=== PATIENT | female | born 1980 | race Caucasian/White ===

== ENCOUNTER 2021-06-13 11:49 | Inpatient (IN) | payer OTHER ==
[~2021-06-13] VITALS: Ht 167.6 cm; Wt 96.8 kg
[2021-06-13] MEDS ORDERED: IPRATRPIUM/ALBUTEROL 0.5/2.5MG 3 ML NEBU. NEB ONE (12:30)
[2021-06-13] MEDS ORDERED: methylPREDNISolone SOD SUCC PF 125 MG/2 ML VIAL. IV ONE (12:30)
--- NOTE | 2021-06-13 12:38 | RAD ---
XR CHEST 1V History: Reason: SOB / Spl. Instructions: / History: Comparison: January 12, 2018 Findings: Multifocal pulmonary consolidations most prominent within the mid lungs. No pleural effusion. No pneu mothorax. Normal heart size. Impression: 1. Multifocal pulmonary consolidations, concerning for pneumonia. Recommend follow-up to ensure reso lution. Electronically signed by: Lalo Sykes DO (06/13/2021 12:36 PM) [id number]
[2021-06-13 12:42] LABS: BASE EXCESS ABG 0 mmol/L (-3-3); HCO3 ABG 24 mmol/L (21-28); PCO2 ABG 37 mmHg (35-46); PO2 ABG 70 mmHg (75-108); SAT O2 ABG 94 % (92-99)
[2021-06-13 12:46] LABS: FIO2 ABG 56%/9LNC
[2021-06-13 13:07] LABS: BASO # 0.2 x10^3/uL (0.0-0.2); BASO % 1 % (0-3); EOS % 0 % (0-3); HEMATOCRIT 39.5 % (36.0-47.0); HEMOGLOBIN 13.5 g/dL (12.0-15.5); LYMPH # 1.7 x10^3/uL (1.0-4.8); LYMPH % 11 % (24-48); MEAN CORPUSCULAR HEMOGLOBIN 31 pg (25-35); MEAN CORPUSCULAR HGB CONC 34 g/dL (31-37); MEAN CORPUSCULAR VOLUME 89 fL (79-100); MONO # 1.2 x10^3/uL (0.0-1.1); MONO % 8 % (0-9); NEUT # 12.5 x10^3/uL (1.8-7.7); NEUT % 80 % (31-73); PLATELET COUNT 320 x10^3/uL (140-400); RED BLOOD COUNT 4.43 x10^6/uL (3.50-5.40); RED CELL DISTRIBUTION WIDTH 13.9 % (11.5-14.5); WHITE BLOOD COUNT 15.6 x10^3/uL (4.0-11.0)
[2021-06-13] MEDS ORDERED: TERBUTALINE 1 MG/ML VIAL. SQ ONE (13:15)
[2021-06-13] MEDS ORDERED: ALBUTEROL SULFATE 2.5 MG/3 ML NEBU. NEB ONE (13:15)
[2021-06-13 13:17] LABS: CALCIUM 9.4 mg/dL (8.5-10.1); CREATININE 1.2 mg/dL (0.6-1.0); GFR 49.3; POTASSIUM 4.1 mmol/L (3.5-5.1)
[2021-06-13 13:22] LABS: ALBUMIN 2.8 g/dL (3.4-5.0); ALBUMIN/GLOBULIN RATIO 0.5 (1.0-1.7); TOTAL BILIRUBIN 0.6 mg/dL (0.2-1.0); TOTAL PROTEIN 8.6 g/dL (6.4-8.2)
[2021-06-13 13:27] LABS: % BANDS 6 % (0-9); % LYMPHS 23 % (24-48); % MONOS 1 % (0-10); % SEGS 70 % (35-66); PLT ESTIMATE ADEQUATE (ADEQUATE)
[2021-06-13] MEDS ORDERED: IV NORMAL SALINE 1000ML BAG 1,000 ML IV ONE (13:30)
[2021-06-13] MEDS ORDERED: IOHEXOL 350 MG/ML 100 ML VIAL. IV ONE (13:45)
[2021-06-13] MEDS ORDERED: CONTRAST GIVEN. MC PRN (14:00)
--- NOTE | 2021-06-13 14:14 | PHYS DOC ---
Past Medical History Past Medical History: Anxiety, Asthma, Bipolar, COPD, Depression, High Cholesterol, Hypertension Past Surgical History: No Surgical History Smoking Status: Heavy Tobacco Smoker Alcohol Use: None Drug Use: None General Adult EDM: Chief Complaint: SHORTNESS OF BREATH HPI: HPI: Patient is a 40-year-old female the presents today with shortness of breath. Patient states that over the last 4 days she has had increased shortness of breath, she did tell staff that she has a history of COPD and is supposed to be on oxygen therapy at home, she said that she has not had any oxygen therapy for over a year to year and a half, she states that over the last 4 days she has had increased shortness of breath and cough. Patient's initial O2 sat upon arrival to the emergency department was 81%, patient was able to ambulate into the department, when she talks she is able to talk in complete sentences but is sitting straight up in the bed with increased work of breathing noted. Patient states that she smokes approximately 2 packs/day but has not smoked in the last 4 days due to the increase shortness of breath, she said she had a breathing treatment around 3:00 this morning and that did not help her breathing. Patient states that she has had 2 Covid vaccines but has not had the booster, she said she did not get the influenza vaccine this year. Review of Systems: Review of Systems: Constitutional: Denies fever or chills. [] Eyes: Denies change in visual acuity. [] HENT: Denies nasal congestion or sore throat. [] Respiratory: Denies cough or shortness of breath. [] Cardiovascular: Denies chest pain or edema. [] GI: Denies abdominal pain, nausea, vomiting, bloody stools or diarrhea. [] : Denies dysuria. [] Musculoskeletal: Denies back pain or joint pain. [] Integument: Denies rash. [] Neurologic: Denies headache, focal weakness or sensory changes. [] Endocrine: Denies polyuria or polydipsia. [] Lymphatic: Denies swollen glands. [] Psychiatric: Denies depression or anxiety. [] Heart Score: C/O Chest Pain: No Risk Factors: Risk Factors: DM, Current or recent (<one month) smoker, HTN, HLP, family history of CAD, obesity. Risk Scores: Score 0 - 3: 2.5% MACE over next 6 weeks - Discharge Home Score 4 - 6: 20.3% MACE over next 6 weeks - Admit for Clinical Observation Score 7 - 10: 72.7% MACE over next 6 weeks - Early Invasive Strategies Current Medications: Current Medications Medications (Trade) Dose Ordered Sig/Kailyn Start Time Stop Time Status Last Admin Dose Admin Albuterol Sulfate (Ventolin Neb Soln) 2.5 mg 1X ONCE 06/13/21 13:15 06/13/21 13:16 DC 06/13/21 13:29 2.5 MG Albuterol/ Ipratropium (Duoneb) 3 ml 1X ONCE 06/13/21 12:30 06/13/21 12:38 DC 06/13/21 12:34 3 ML Ceftriaxone Sodium (Rocephin) 1 gm 1X ONCE 06/13/21 14:15 06/13/21 14:16 Doxycycline Hyclate 100 mg/ Dextrose 100 ml @ 50 mls/hr 1X ONCE 06/13/21 14:15 06/13/21 16:14 Info (CONTRAST GIVEN -- Rx MONITORING) 1 each PRN DAILY PRN 06/13/21 14:00 06/15/21 13:59 Iohexol (Omnipaque 350 Mg/ml) 90 ml 1X ONCE 06/13/21 13:45 06/13/21 13:49 DC 06/13/21 13:42 90 ML Methylprednisolone Sodium Succinate (SOLU-Medrol 125MG VIAL) 125 mg 1X ONCE 06/13/21 12:30 06/13/21 12:38 DC 06/13/21 12:53 125 MG Sodium Chloride 1,000 ml @ 999 mls/hr 1X ONCE 06/13/21 13:30 06/13/21 14:30 06/13/21 14:03 999 MLS/HR Terbutaline Sulfate (Brethine) 0.25 mg 1X ONCE 06/13/21 13:15 06/13/21 13:16 DC 06/13/21 14:07 0.25 MG Allergies: Allergies: Allergies Coded Allergies Type Severity Reaction Last Updated Verified Penicillins Allergy Intermediate 06/13/21 Yes azithromycin Allergy Unknown 06/13/21 Yes levofloxacin Allergy Unknown 06/13/21 Yes morphine Allergy Unknown 06/13/21 Yes tramadol Allergy Unknown 06/13/21 Yes Physical Exam: PE: Constitutional: moderate distress female appears uncapped, and a strong cigarette smell, HENT: Normocephalic, atraumatic, bilateral external ears normal, oropharynx moist, no oral exudates, nose normal. [] Eyes: PERRLA, EOMI, conjunctiva normal, no discharge. [] Neck: Normal range of motion, no tenderness, supple, no stridor. [] Cardiovascular:Heart rate tachycardic, peripheral pulses 2+ Lungs & Thorax: Bilateral breath sounds wheezes throughout with diminished bases, increased work of breathing noted, patient is on 9 L per nasal cannula Abdomen: Bowel sounds normal, soft, no tenderness, no masses, no pulsatile masses. [] Skin: Pale, warm, dry, no erythema, no rash. [] Back: No tenderness, no CVA tenderness. [] Extremities: No tenderness, no cyanosis, no clubbing, ROM intact, no edema. [] Neurologic: Alert and oriented X 3, normal motor function, normal sensory function, no focal deficits noted. [] Psychologic: Affect normal, judgement normal, mood normal. [] Current Patient Data: Labs: Laboratory Tests Test 06/13/21 12:41 06/13/21 12:46 O2 Saturation 94 % (92-99) Arterial Blood pH 7.43 (7.35-7.45) Arterial Blood pCO2 at Patient Temp 37 mmHg (35-46) Arterial Blood pO2 at Patient Temp 70 mmHg (75-108) L Arterial Blood HCO3 24 mmol/L (21-28) Arterial Blood Base Excess 0 mmol/L (-3-3) FiO2 56%/9lnc White Blood Count 15.6 x10^3/uL (4.0-11.0) H Red Blood Count 4.43 x10^6/uL (3.50-5.40) Hemoglobin 13.5 g/dL (12.0-15.5) Hematocrit 39.5 % (36.0-47.0) Mean Corpuscular Volume 89 fL (79-100) Mean Corpuscular Hemoglobin 31 pg (25-35) Mean Corpuscular Hemoglobin Concent 34 g/dL (31-37) Red Cell Distribution Width 13.9 % (11.5-14.5) Platelet Count 320 x10^3/uL (140-400) Neutrophils (%) (Auto) 80 % (31-73) H Lymphocytes (%) (Auto) 11 % (24-48) L Monocytes (%) (Auto) 8 % (0-9) Eosinophils (%) (Auto) 0 % (0-3) Basophils (%) (Auto) 1 % (0-3) Neutrophils # (Auto) 12.5 x10^3/uL (1.8-7.7) H Lymphocytes # (Auto) 1.7 x10^3/uL (1.0-4.8) Monocytes # (Auto) 1.2 x10^3/uL (0.0-1.1) H Eosinophils # (Auto) 0.0 x10^3/uL (0.0-0.7) Basophils # (Auto) 0.2 x10^3/uL (0.0-0.2) Segmented Neutrophils % 70 % (35-66) H Band Neutrophils % 6 % (0-9) Lymphocytes % 23 % (24-48) L Monocytes % 1 % (0-10) Platelet Estimate Adequate (ADEQUATE) Sodium Level 130 mmol/L (136-145) L Potassium Level 4.1 mmol/L (3.5-5.1) Chloride Level 94 mmol/L (98-107) L Carbon Dioxide Level 25 mmol/L (21-32) Anion Gap 11 (6-14) Blood Urea Nitrogen 14 mg/dL (7-20) Creatinine 1.2 mg/dL (0.6-1.0) H Estimated GFR (Cockcroft-Gault) 49.3 BUN/Creatinine Ratio 12 (6-20) Glucose Level 385 mg/dL (70-99) H Calcium Level 9.4 mg/dL (8.5-10.1) Total Bilirubin 0.6 mg/dL (0.2-1.0) Aspartate Amino Transferase (AST) 24 U/L (15-37) Alanine Aminotransferase (ALT) 30 U/L (14-59) Alkaline Phosphatase 154 U/L (46-116) H Troponin I High Sensitivity < 4 ng/L (4-50) L OY-Zpg-G-Type Natriuretic Peptide 193 pg/mL (0-124) H Total Protein 8.6 g/dL (6.4-8.2) H Albumin 2.8 g/dL (3.4-5.0) L Albumin/Globulin Ratio 0.5 (1.0-1.7) L Laboratory Tests 06/13/21 12:46 Laboratory Tests 06/13/21 12:46 Vital Signs: Vital Signs Date Time Temp Pulse Resp B/P (MAP) Pulse Ox O2 Delivery O2 Flow Rate FiO2 06/13/21 14:53 118 37 114/62 (79) 95 Nasal Cannula 10.0 06/13/21 14:07 112 115/70 06/13/21 14:01 114 38 115/70 (85) 95 Room Air 10.0 06/13/21 13:30 94 Nasal Cannula 9.0 06/13/21 12:46 120 34 129/72 (91) 94 Room Air 10.0 06/13/21 12:34 95 Nasal Cannula 9.0 06/13/21 12:06 98.7 124 32 122/67 (85) 81 Room Air 98.7 Vital Signs Date Time Temp Pulse Resp B/P (MAP) Pulse Ox O2 Delivery O2 Flow Rate FiO2 06/13/21 14:07 112 115/70 06/13/21 14:01 38 95 Room Air 10.0 06/13/21 12:06 98.7 98.7 EKG: EKG: EKG done at [address] Kim at 1402 shows sinus tachycardia no ectopy at a rate of 115 with a DC interval of 122 ms with a QTC of 456 ms no STEMI [] Radiology/Procedures: Radiology/Procedures: REASON: SOA PROCEDURE: CT ANGIOGRAPHY CHEST CTA Chest with contrast: Clinical History: Reason: SOA / Spl. Instructions: [id number] 90ML / History: Shortness of breath. Axial helical images of the chest were obtained after the administration of 100 cc of IV Isovue-370 and timed appropriately for a pulmonary arterial study. Conventional axial reconstruction was performed in addition to coronal, sagittal and bilateral oblique MIP (maximum intensity projection). This study was ordered to detect possible pulmonary embolism. FINDINGS: There are no filling defects to suggest pulmonary embolism. The more peripheral subsegmental pulmonary arteries are not well opacified limiting our sensitivity for small peripheral pulmonary emboli. There is patchy opacities throughout the lungs bilaterally especially in the peripheral mid lungs. There is multilevel mild enlargement of subcarinal and hilar lymph nodes. There is hypoattenuation of the liver. There is no mediastinal or hilar lymphadenopathy. Evaluation thoracic aorta is limited by beam hardening artifact from dense contrast in the SVC. Thoracic aorta is felt to be normal. Impression: 1. No evidence of pulmonary embolism. 2. Moderate bilateral infiltrates slightly atypical pneumonia. Recommend follow-up chest x-ray to complete resolution. 3. Mild lymphadenopathy likely reactive. End of impression PQRS Compliance Statement: One or more of the following individualized dose reduction techniques were utilized for this examination: 1. Automated exposure control 2. Adjustment of the mA and/or kV according to patient size 3. Use of iterative reconstruction technique Electronically signed by: Americo Fields III, MD (06/13/2021 2:59 PM) [facility] REASON: SOB PROCEDURE: CHEST AP ONLY XR CHEST 1V History: Reason: SOB / Spl. Instructions: / History: Comparison: January 12, 2018 Findings: Multifocal pulmonary consolidations most prominent within the mid lungs. No pleural effusion. No pneumothorax. Normal heart size. Impression: 1. Multifocal pulmonary consolidations, concerning for pneumonia. Recommend follow-up to ensure resolution. Electronically signed by: Lalo Sykes DO (06/13/2021 12:36 PM) [id number] [] Course & Med Decision Making: Course & Med Decision Making Pertinent Labs and Imaging studies reviewed. (See chart for details) [id number] Mary with the hospitalist group and he is agreeable to admitting the patient for further evaluation and further treatment of her s hortness of air, atypical pneumonia. Dragtari Disclaimer: Lisa Disclaimer: This electronic medical record was generated, in whole or in part, using a voice recognition dictation system. Departure Departure Impression: Primary Impression: Hypoxia Additional Impressions: Shortness of breath Atypical pneumonia Disposition: ADMITTED INPATIENT Admitting Physician: HIMS Referrals: MADY PETERS MD (PCP) DELPHINE ANSH APRN Jun 13, 2021 14:14
[2021-06-13] MEDS ORDERED: DOXYCYCLINE HYCLATE 100 MG in IV DEXTROSE 5% 100ML 100 ML IV ONE (14:15)
[2021-06-13] MEDS ORDERED: cefTRIAXone IV Push 1 GM VIAL. IVP ONE (14:15)
[2021-06-13 14:40] LABS: INFLUENZA A PATIENT NEGATIVE (NEGATIVE); INFLUENZA B PATIENT NEGATIVE (NEGATIVE)
--- NOTE | 2021-06-13 15:01 | RAD ---
CTA Chest with contrast: Clinical History: Reason: SOA / Spl. Instructions: [id number] 90ML / History: Shortness of breath. Axial helical images of the chest were obtained after the administration of 100 cc of IV Isovue-370 a nd timed appropriately for a pulmonary arterial study. Conventional axial reconstruction was perform ed in addition to coronal, sagittal and bilateral oblique MIP (maximum intensity projection). This s tudy was ordered to detect possible pulmonary embolism. FINDINGS: There are no filling defects to suggest pulmonary embolism. The more peripheral subsegmental pulmonary arteries are not well opacified limiting our sensitivity f or small peripheral pulmonary emboli. There is patchy opacities throughout the lungs bilaterally especially in the peripheral mid lungs. There is multilevel mild enlargement of subcarinal and hilar lymph nodes. There is hypoattenuation of the liver. There is no mediastinal or hilar lymphadenopathy. Evaluation thoracic aorta is limited by beam hardening artifact from dense contrast in the SVC. Thora cic aorta is felt to be normal. Impression: 1. No evidence of pulmonary embolism. 2. Moderate bilateral infiltrates slightly atypical pneumonia. Recommend follow-up chest x-ray to co mplete resolution. 3. Mild lymphadenopathy likely reactive. End of impression PQRS Compliance Statement: One or more of the following individualized dose reduction techniques were utilized for this examinat ion: 1. Automated exposure control 2. Adjustment of the mA and/or kV according to patient size 3. Use of iterative reconstruction technique Electronically signed by: Americo Fields III, MD (06/13/2021 2:59 PM) [facility]
[2021-06-13] MEDS ORDERED: DULA1.5P SQ (18:02)
[2021-06-13] MEDS ORDERED: CARI4.5C PO (18:02)
[2021-06-13 19:00] VITALS: BP 114/69
[2021-06-13] MEDS ORDERED: IV DEXTROSE 5% 250 ML BAG. IV PRN (19:00)
[2021-06-13] MEDS ORDERED: DEXTROSE 50% 25 GM / 50ML DISP.SYRIN. IV PRN (19:00)
[2021-06-13] MEDS ORDERED: INSULIN LISPRO 300 UNITS/3 ML VIAL. SQ ONE (19:30)
[2021-06-13] MEDS ORDERED: NICOTINE 21MG PATCH. TD PRN (20:15)
--- NOTE | 2021-06-13 20:19 | PDOC1 ---
History and Physical Date of Admission Date of Admission DATE: 06/13/21 TIME: 20:14 Source Source: Chart review, Patient History of Present Illness History of Present Illness Marie is a 40-year-old female admit form the ER with acutely worse shortness of breath. Over 4 days w/ increased shortness of breath, cough today. She was at the park today and could not breathe well, had some panic sensation that she could not breathe. Prior hypoxia with illness, no home 02. Hypoxic in field 81%, she walked in to the ER. NOramlly, smokes 2 packs/day but quit 4 days due to not feeling well, her home breathing treatments were not helping. had 2 Covid vaccines Past Medical History Cardiovascular: No pertinent hx Pulmonary: Asthma, COPD GI: No pertinent hx Heme/Onc: No pertinent hx Psych: Anxiety, Bipolar Musculoskeletal: low back pain Rheumatologic: No pertinent hx ENT: No pertinent hx Renal/: No pertinent hx Endocrine: No pertinent hx Dermatology: No pertinent hx Past Surgical History Past Surgical History: No pertinent history Family History Family History: No Significant Social History Smoke: 1 pack per day ALCOHOL: none Drugs: None Current Problem List Problem List Problems Medical Problems: (1) Atypical pneumonia Status: Acute (2) Hypoxia Status: Acute (3) Shortness of breath Status: Acute Current Medications Current Medications Current Medications Albuterol/ Ipratropium (Duoneb) 3 ml 1X ONCE NEB Last administered on 06/13/21at 12:34; Start 06/13/21 at 12:30; Stop 06/13/21 at 12:38; Status DC Methylprednisolone Sodium Succinate (SOLU-Medrol 125MG VIAL) 125 mg 1X ONCE IV Last administered on 06/13/21at 12:53; Start 06/13/21 at 12:30; Stop 06/13/21 at 12:38; Status DC Albuterol Sulfate (Ventolin Neb Soln) 2.5 mg 1X ONCE NEB Last administered on 06/13/21at 13:29; Start 06/13/21 at 13:15; Stop 06/13/21 at 13:16; Status DC Terbutaline Sulfate (Brethine) 0.25 mg 1X ONCE SQ Last administered on 06/13/21at 14:07; Start 06/13/21 at 13:15; Stop 06/13/21 at 13:16; Status DC Sodium Chloride 1,000 ml @ 999 mls/hr 1X ONCE IV Last administered on 06/13/21at 14:03; Start 06/13/21 at 13:30; Stop 06/13/21 at 14:30; Status DC Iohexol (Omnipaque 350 Mg/ml) 90 ml 1X ONCE IV Last administered on 06/13/21at 13:42; Start 06/13/21 at 13:45; Stop 06/13/21 at 13:49; Status DC Info (CONTRAST GIVEN -- Rx MONITORING) 1 each PRN DAILY PRN MC SEE COMMENTS; Start 06/13/21 at 14:00; Stop 06/15/21 at 13:59 Ceftriaxone Sodium (Rocephin) 1 gm 1X ONCE IVP Last administered on 06/13/21at 14:58; Start 06/13/21 at 14:15; Stop 06/13/21 at 14:16; Status DC Doxycycline Hyclate 100 mg/ Dextrose 100 ml @ 50 mls/hr 1X ONCE IV Last administered on 06/13/21at 14:58; Start 06/13/21 at 14:15; Stop 06/13/21 at 16:14; Status DC Insulin Human Lispro (HumaLOG) 0-9 UNITS TIDWMEALHC SQ ; Start 06/13/21 at 21:00 Dextrose (Dextrose 50%-Water Syringe) 12.5 gm PRN Q15MIN PRN IV SEE COMMENTS; Start 06/13/21 at 19:00 Dextrose (Iv Dextrose 5%) 250 ml PRN Q15MIN PRN IV SEE COMMENTS; Start 06/13/21 at 19:00 Insulin Human Lispro (HumaLOG) 10 units TIDWMEALS SQ ; Start 06/14/21 at 08:00 Insulin Human Lispro (HumaLOG) 15 units 1X ONCE SQ Last administered on 06/13/21at 19:30; Start 06/13/21 at 19:30; Stop 06/13/21 at 19:31; Status DC Non-Formulary Medication (Cariprazine Hydrochloride (Vraylar)) 1 cap DAILY PO ; Start 06/14/21 at 09:00; Status UNV Non-Formulary Medication (Dulaglutide (Trulicity)) 1.5 mg WEEKLY SQ ; Start 06/20/21 at 09:00; Status UNV Active Scripts Active Reported Trulicity (Dulaglutide) 1.5 Mg/0.5 Ml Pen.injctr 1.5 Mg SQ WEEKLY Vraylar (Cariprazine Hydrochloride) 4.5 Mg Capsule 1 Cap PO DAILY 30 Days Allergies Allergies: Coded Allergies: Penicillins (Verified Allergy, Intermediate, 06/13/21) azithromycin (Verified Allergy, Unknown, 06/13/21) levofloxacin (Verified Allergy, Unknown, 06/13/21) morphine (Verified Allergy, Unknown, 06/13/21) tramadol (Verified Allergy, Unknown, 06/13/21) ROS General: YES: Chills, Fatigue, Malaise PSYCHOLOGICAL ROS: YES: Anxiety, Sleep disturbances; No: Behavioral Disorder, Concentration difficultie, Decreased libido, Depression, Disorientation, Hallucinations, Hostility, Irritablity, Memory difficulties, Mood Swings, Obsessive thoughts, Other Eyes: No Blurry vision, No Decreased vision, No Double vision, No Dry eyes, No Excessive tearing, No Eye Pain, No Itchy Eyes, No Loss of vision, No Photophobia, No Scotomata, No Uses contacts, No Uses glasses, No Other HEENT: YES: Heacaches; No: Visual Changes, Hearing change, Nasal congestion, Nasal discharge, Oral lesions, Sinus pain, Sore Throat, Epistaxis, Sneezing, Snoring, Tinnitus, Vertigo, Vocal changes, Other Respiratory: YES: Cough, Shortness of breath, SOB with excertion; No: Hemoptysis, Orthopnea, Pleuritic Pain, Sputum Changes, Stridor, Tachypnea, Wheezing, Other Cardiovascular: No Chest Pain, No Palpitations, No Orthopnea, No Paroxysmal Noc. Dyspnea, No Edema, No Lt Headedness, No Other Gastrointestinal: No Nausea, No Vomiting, No Abdominal Pain, No Diarrhea, No Constipation, No Melena, No Hematochezia, No Other Genitourinary: No Dysuria, No Frequency, No Incontinence, No Hematuria, No Retention, No Discharge, No Urgency, No Pain, No Flank Pain, No Other, No , No , No , No , No , No , No Musculoskeletal: Yes Joint Stiffness; No Gait Disturbance, No Joint Pain, No Joint Swelling, No Muscle Pain, No Muscular Weakness, No Pain In:, No Swelling In:, No Other Neurological: No Behavorial Changes, No Bowel/Bladder ControlChng, No Confusion, No Dizziness, No Gait Disturbance, No Headaches, No Impaired Coord/balance, No Memory Loss, No Numbness/Tingling, No Seizures, No Speech Problems, No Tremors, No Visual Changes, No Weakness, No Other Skin: Yes Dry Skin; No Eczema, No Hair Changes, No Lumps, No Mole Changes, No Mottling, No Nail Changes, No Pruritus, No Rash, No Skin Lesion Changes, No Other, No Acne Physical Exam Physical Exam sweaty, clammy General: Alert, Oriented X3, No acute distress, mild distress HEENT: Atraumatic Lungs: Other (lower vol, rales, no crackes, ) Abdomen: Normal bowel sounds, Soft, No tenderness Extremities: No clubbing, No edema Skin: No rashes, No significant lesion Neuro: Normal speech, Normal tone, Cranial nerves 3-12 NL Psych/Mental Status: Mood NL Vitals Vitals Vital Signs Date Time Temp Pulse Resp B/P (MAP) Pulse Ox O2 Delivery O2 Flow Rate FiO2 06/13/21 19:00 98.1 96 18 114/69 (84) 96 Room Air 98.1 06/13/21 17:15 10.0 Labs Labs Laboratory Tests Test 06/13/21 12:41 06/13/21 12:46 06/13/21 14:09 06/13/21 18:45 O2 Saturation 94 % (92-99) Arterial Blood pH 7.43 (7.35-7.45) Arterial Blood pCO2 at Patient Temp 37 mmHg (35-46) Arterial Blood pO2 at Patient Temp 70 mmHg (75-108) Arterial Blood HCO3 24 mmol/L (21-28) Arterial Blood Base Excess 0 mmol/L (-3-3) FiO2 56%/9lnc White Blood Count 15.6 x10^3/uL (4.0-11.0) Red Blood Count 4.43 x10^6/uL (3.50-5.40) Hemoglobin 13.5 g/dL (12.0-15.5) Hematocrit 39.5 % (36.0-47.0) Mean Corpuscular Volume 89 fL (79-100) Mean Corpuscular Hemoglobin 31 pg (25-35) Mean Corpuscular Hemoglobin Concent 34 g/dL (31-37) Red Cell Distribution Width 13.9 % (11.5-14.5) Platelet Count 320 x10^3/uL (140-400) Neutrophils (%) (Auto) 80 % (31-73) Lymphocytes (%) (Auto) 11 % (24-48) Monocytes (%) (Auto) 8 % (0-9) Eosinophils (%) (Auto) 0 % (0-3) Basophils (%) (Auto) 1 % (0-3) Neutrophils # (Auto) 12.5 x10^3/uL (1.8-7.7) Lymphocytes # (Auto) 1.7 x10^3/uL (1.0-4.8) Monocytes # (Auto) 1.2 x10^3/uL (0.0-1.1) Eosinophils # (Auto) 0.0 x10^3/uL (0.0-0.7) Basophils # (Auto) 0.2 x10^3/uL (0.0-0.2) Segmented Neutrophils % 70 % (35-66) Band Neutrophils % 6 % (0-9) Lymphocytes % 23 % (24-48) Monocytes % 1 % (0-10) Platelet Estimate Adequate (ADEQUATE) Maternal Serum HCG Beta Subunit < 1 mIU/mL (0-5) Sodium Level 130 mmol/L (136-145) Potassium Level 4.1 mmol/L (3.5-5.1) Chloride Level 94 mmol/L (98-107) Carbon Dioxide Level 25 mmol/L (21-32) Anion Gap 11 (6-14) Blood Urea Nitrogen 14 mg/dL (7-20) Creatinine 1.2 mg/dL (0.6-1.0) Estimated GFR (Cockcroft-Gault) 49.3 BUN/Creatinine Ratio 12 (6-20) Glucose Level 385 mg/dL (70-99) Calcium Level 9.4 mg/dL (8.5-10.1) Total Bilirubin 0.6 mg/dL (0.2-1.0) Aspartate Amino Transf (AST/SGOT) 24 U/L (15-37) Alanine Aminotransferase (ALT/SGPT) 30 U/L (14-59) Alkaline Phosphatase 154 U/L (46-116) Troponin I High Sensitivity < 4 ng/L (4-50) BD-Mnc-B-Type Natriuretic Peptide 193 pg/mL (0-124) Total Protein 8.6 g/dL (6.4-8.2) Albumin 2.8 g/dL (3.4-5.0) Albumin/Globulin Ratio 0.5 (1.0-1.7) Influenza Type A Antigen Negative (NEGATIVE) Influenza Type B Antigen Negative (NEGATIVE) SARS-CoV-2 Antigen (Rapid) Negative (NEGATIVE) Glucose (Fingerstick) 468 mg/dL (70-99) Laboratory Tests Test 06/13/21 12:41 06/13/21 12:46 06/13/21 14:09 06/13/21 18:45 O2 Saturation 94 % (92-99) Arterial Blood pH 7.43 (7.35-7.45) Arterial Blood pCO2 at Patient Temp 37 mmHg (35-46) Arterial Blood pO2 at Patient Temp 70 mmHg (75-108) Arterial Blood HCO3 24 mmol/L (21-28) Arterial Blood Base Excess 0 mmol/L (-3-3) FiO2 56%/9lnc White Blood Count 15.6 x10^3/uL (4.0-11.0) Red Blood Count 4.43 x10^6/uL (3.50-5.40) Hemoglobin 13.5 g/dL (12.0-15.5) Hematocrit 39.5 % (36.0-47.0) Mean Corpuscular Volume 89 fL (79-100) Mean Corpuscular Hemoglobin 31 pg (25-35) Mean Corpuscular Hemoglobin Concent 34 g/dL (31-37) Red Cell Distribution Width 13.9 % (11.5-14.5) Platelet Count 320 x10^3/uL (140-400) Neutrophils (%) (Auto) 80 % (31-73) Lymphocytes (%) (Auto) 11 % (24-48) Monocytes (%) (Auto) 8 % (0-9) Eosinophils (%) (Auto) 0 % (0-3) Basophils (%) (Auto) 1 % (0-3) Neutrophils # (Auto) 12.5 x10^3/uL (1.8-7.7) Lymphocytes # (Auto) 1.7 x10^3/uL (1.0-4.8) Monocytes # (Auto) 1.2 x10^3/uL (0.0-1.1) Eosinophils # (Auto) 0.0 x10^3/uL (0.0-0.7) Basophils # (Auto) 0.2 x10^3/uL (0.0-0.2) Segmented Neutrophils % 70 % (35-66) Band Neutrophils % 6 % (0-9) Lymphocytes % 23 % (24-48) Monocytes % 1 % (0-10) Platelet Estimate Adequate (ADEQUATE) Maternal Serum HCG Beta Subunit < 1 mIU/mL (0-5) Sodium Level 130 mmol/L (136-145) Potassium Level 4.1 mmol/L (3.5-5.1) Chloride Level 94 mmol/L (98-107) Carbon Dioxide Level 25 mmol/L (21-32) Anion Gap 11 (6-14) Blood Urea Nitrogen 14 mg/dL (7-20) Creatinine 1.2 mg/dL (0.6-1.0) Estimated GFR (Cockcroft-Gault) 49.3 BUN/Creatinine Ratio 12 (6-20) Glucose Level 385 mg/dL (70-99) Calcium Level 9.4 mg/dL (8.5-10.1) Total Bilirubin 0.6 mg/dL (0.2-1.0) Aspartate Amino Transf (AST/SGOT) 24 U/L (15-37) Alanine Aminotransferase (ALT/SGPT) 30 U/L (14-59) Alkaline Phosphatase 154 U/L (46-116) Troponin I High Sensitivity < 4 ng/L (4-50) LE-Ems-R-Type Natriuretic Peptide 193 pg/mL (0-124) Total Protein 8.6 g/dL (6.4-8.2) Albumin 2.8 g/dL (3.4-5.0) Albumin/Globulin Ratio 0.5 (1.0-1.7) Influenza Type A Antigen Negative (NEGATIVE) Influenza Type B Antigen Negative (NEGATIVE) SARS-CoV-2 Antigen (Rapid) Negative (NEGATIVE) Glucose (Fingerstick) 468 mg/dL (70-99) VTE Prophylaxis Ordered VTE Prophylaxis Devices: No VTE Pharmacological Prophylaxi: Yes Assessment/Plan Assessment/Plan acute hypoxic respiratory failure sepsis pneumonia - rocephin and doxy COPD with acute exacerbation, steroids and nebs, asthma Tobacco abuse disorder, ongoing Bipolar disorder, controlled on meds obese, BMI 34 Justifications for Admission Other Justification TONIA KING MD Jun 13, 2021 20:19
[2021-06-13] MEDS: ENOXAPARIN 40 MG/0.4 ML SYRINGE. SQ SCH (21:31)
[2021-06-13] MEDS: ALPRAZolam 0.5 MG TABLET PO PRN (21:31)
[2021-06-13] MEDS: DOXYCYCLINE HYCLATE 100 MG TABLET PO SCH (21:31)
[2021-06-13] MEDS: INSULIN LISPRO 300 UNITS/3 ML VIAL. SQ SCH (21:32)
[2021-06-13] MEDS: guaiFENesin/CODEINE 100mg/10mg 5 ML LIQUID PO PRN (22:10)
[2021-06-13 23:00] VITALS: BP 108/71
[2021-06-13] MEDS: IPRATRPIUM/ALBUTEROL 0.5/2.5MG 3 ML NEBU. NEB SCH (23:50)
[2021-06-14 03:24] VITALS: BP 111/77
[2021-06-14] MEDS: IPRATRPIUM/ALBUTEROL 0.5/2.5MG 3 ML NEBU. NEB SCH ×5 (06:00→18:05)
--- NOTE | 2021-06-14 06:04 | EKG ---
[facility] [address] [place] [address] Test Date: 2021-06-13 Test Time: 13:59:13 Pat Name: SHERIDAN MORALES Department: Room: [facility] Gender: F Section Supervisor: : 1980 Requested By: DELPHINE NASH Order Number: [id number] Reading MD: Chung Pierre MD Measurements Intervals [place] Rate: 115 P: 36 NH: 122 QRS: 56 QRSD: 98 T: 53 QT: 328 QTc: 456 Interpretive Statements SINUS TACHYCARDIA Electronically Signed On 06-16-2021 17:58:24 CDT by Chung Pierre MD
[2021-06-14 07:00] VITALS: BP 108/76
[2021-06-14] MEDS: INSULIN LISPRO 300 UNITS/3 ML VIAL. SQ SCH ×7 (08:40→21:10)
[2021-06-14] MEDS: NON FORMULARY ITEM (Cariprazine Hydrochloride (Vraylar) 1 CAP) PO SCH (09:00)
[2021-06-14] MEDS: DOXYCYCLINE HYCLATE 100 MG TABLET PO SCH ×2 (09:29→21:06)
[2021-06-14] MEDS: BENZONATATE 100 MG CAPSULE. PO SCH ×3 (09:29→21:00)
[2021-06-14] MEDS: predniSONE 20 MG TABLET PO SCH (09:29)
[2021-06-14] MEDS: INSULIN GLARGINE SYRINGE. SQ SCH ×2 (09:32→21:11)
[2021-06-14 09:37] LABS: BASO # 0.2 x10^3/uL (0.0-0.2); BASO % 1 % (0-3); EOS % 0 % (0-3); HEMATOCRIT 39.7 % (36.0-47.0); HEMOGLOBIN 12.9 g/dL (12.0-15.5); LYMPH # 1.7 x10^3/uL (1.0-4.8); LYMPH % 13 % (24-48); MEAN CORPUSCULAR HEMOGLOBIN 30 pg (25-35); MEAN CORPUSCULAR HGB CONC 32 g/dL (31-37); MEAN CORPUSCULAR VOLUME 92 fL (79-100); MONO # 0.4 x10^3/uL (0.0-1.1); MONO % 3 % (0-9); NEUT # 11.1 x10^3/uL (1.8-7.7); NEUT % 83 % (31-73); PLATELET COUNT 301 x10^3/uL (140-400); RED BLOOD COUNT 4.34 x10^6/uL (3.50-5.40); RED CELL DISTRIBUTION WIDTH 14.3 % (11.5-14.5); WHITE BLOOD COUNT 13.4 x10^3/uL (4.0-11.0)
[2021-06-14 09:51] LABS: ALBUMIN 2.6 g/dL (3.4-5.0); ALBUMIN/GLOBULIN RATIO 0.6 (1.0-1.7); CALCIUM 8.7 mg/dL (8.5-10.1); CREATININE 1.2 mg/dL (0.6-1.0); GFR 49.3; POTASSIUM 4.3 mmol/L (3.5-5.1); TOTAL BILIRUBIN 0.3 mg/dL (0.2-1.0); TOTAL PROTEIN 6.9 g/dL (6.4-8.2)
--- NOTE | 2021-06-14 10:22 | NUR ---
SW following. Discussed with RN, pt from home with daughter and son in law, 8L (uses 2L at home but hadn't been using it), cardiac diet. Pulmonology following,. RN advised no SW needs at this time. SW will continue to follow.
--- NOTE | 2021-06-14 10:39 | PDOC ---
[employer] PROGRESS NOTE Date of Service DOS: DATE: 06/14/21 TIME: 10:36 Chief Complaint Chief Complaint Assessment/Plan acute hypoxic respiratory failure sepsis pneumonia - rocephin and doxy COPD with acute exacerbation, steroids and nebs, asthma Tobacco abuse disorder, ongoing Bipolar disorder, controlled on meds obese, BMI 34 History of Present Illness History of Present Illness 40-year-old female admit form the ER with acutely worse shortness of breath. Over 4 days w/ increased shortness of breath, cough today. [place] was at the park today and could not breathe well, had some panic sensation that she could not breathe. Prior hypoxia with illness, no home 02. Hypoxic in field 81%, she walked in to the ER. NOramlly, smokes 2 packs/day but quit 4 days due to not feeling well, her home breathing treatments were not helping. had 2 Covid vaccines 06/14/2021 No acute events overnight. Patient seen examined bedside. Patient requiring 5 L nasal cannula saturating 97%. Not dyspneic upon my encounter. Tolerating br eakfast. Blood sugars this morning at 573. Sliding scale and 10 units premeals given. Started on 10 units glargine twice daily. Will start on IV fluids. Vitals/I&O Vitals/I&O: Vital Signs Date Time Temp Pulse Resp B/P (MAP) Pulse Ox O2 Delivery O2 Flow Rate FiO2 06/14/21 08:00 Nasal Cannula 10.0 06/14/21 07:58 97 06/14/21 07:00 98.1 74 20 108/76 (87) 98.1 Physical Exam General: Alert, Oriented X3, No acute distress, mild distress Heart: Regular rate Abdomen: Normal bowel sounds, Soft, No tenderness Extremities: No clubbing, No edema Skin: No rashes, No significant lesion Labs Labs: Laboratory Tests Test 06/13/21 12:41 06/13/21 12:46 06/13/21 14:09 06/13/21 18:45 O2 Saturation 94 % (92-99) Arterial Blood pH 7.43 (7.35-7.45) Arterial Blood pCO2 at Patient Temp 37 mmHg (35-46) Arterial Blood pO2 at Patient Temp 70 mmHg (75-108) Arterial Blood HCO3 24 mmol/L (21-28) Arterial Blood Base Excess 0 mmol/L (-3-3) FiO2 56%/9lnc White Blood Count 15.6 x10^3/uL (4.0-11.0) Red Blood Count 4.43 x10^6/uL (3.50-5.40) Hemoglobin 13.5 g/dL (12.0-15.5) Hematocrit 39.5 % (36.0-47.0) Mean Corpuscular Volume 89 fL (79-100) Mean Corpuscular Hemoglobin 31 pg (25-35) Mean Corpuscular Hemoglobin Concent 34 g/dL (31-37) Red Cell Distribution Width 13.9 % (11.5-14.5) Platelet Count 320 x10^3/uL (140-400) Neutrophils (%) (Auto) 80 % (31-73) Lymphocytes (%) (Auto) 11 % (24-48) Monocytes (%) (Auto) 8 % (0-9) Eosinophils (%) (Auto) 0 % (0-3) Basophils (%) (Auto) 1 % (0-3) Neutrophils # (Auto) 12.5 x10^3/uL (1.8-7.7) Lymphocytes # (Auto) 1.7 x10^3/uL (1.0-4.8) Monocytes # (Auto) 1.2 x10^3/uL (0.0-1.1) Eosinophils # (Auto) 0.0 x10^3/uL (0.0-0.7) Basophils # (Auto) 0.2 x10^3/uL (0.0-0.2) Segmented Neutrophils % 70 % (35-66) Band Neutrophils % 6 % (0-9) Lymphocytes % 23 % (24-48) Monocytes % 1 % (0-10) Platelet Estimate Adequate (ADEQUATE) Maternal Serum HCG Beta Subunit < 1 mIU/mL (0-5) Sodium Level 130 mmol/L (136-145) Potassium Level 4.1 mmol/L (3.5-5.1) Chloride Level 94 mmol/L (98-107) Carbon Dioxide Level 25 mmol/L (21-32) Anion Gap 11 (6-14) Blood Urea Nitrogen 14 mg/dL (7-20) Creatinine 1.2 mg/dL (0.6-1.0) Estimated GFR (Cockcroft-Gault) 49.3 BUN/Creatinine Ratio 12 (6-20) Glucose Level 385 mg/dL (70-99) Calcium Level 9.4 mg/dL (8.5-10.1) Total Bilirubin 0.6 mg/dL (0.2-1.0) Aspartate Amino Transf (AST/SGOT) 24 U/L (15-37) Alanine Aminotransferase (ALT/SGPT) 30 U/L (14-59) Alkaline Phosphatase 154 U/L (46-116) Troponin I High Sensitivity < 4 ng/L (4-50) AT-Frt-L-Type Natriuretic Peptide 193 pg/mL (0-124) Total Protein 8.6 g/dL (6.4-8.2) Albumin 2.8 g/dL (3.4-5.0) Albumin/Globulin Ratio 0.5 (1.0-1.7) Influenza Type A Antigen Negative (NEGATIVE) Influenza Type B Antigen Negative (NEGATIVE) SARS-CoV-2 Antigen (Rapid) Negative (NEGATIVE) Glucose (Fingerstick) 468 mg/dL (70-99) Test 06/13/21 20:28 06/14/21 08:00 06/14/21 08:03 06/14/21 09:07 Glucose (Fingerstick) 597 mg/dL (70-99) 547 mg/dL (70-99) 573 mg/dL (70-99) White Blood Count 13.4 x10^3/uL (4.0-11.0) Red Blood Count 4.34 x10^6/uL (3.50-5.40) Hemoglobin 12.9 g/dL (12.0-15.5) Hematocrit 39.7 % (36.0-47.0) Mean Corpuscular Volume 92 fL (79-100) Mean Corpuscular Hemoglobin 30 pg (25-35) Mean Corpuscular Hemoglobin Concent 32 g/dL (31-37) Red Cell Distribution Width 14.3 % (11.5-14.5) Platelet Count 301 x10^3/uL (140-400) Neutrophils (%) (Auto) 83 % (31-73) Lymphocytes (%) (Auto) 13 % (24-48) Monocytes (%) (Auto) 3 % (0-9) Eosinophils (%) (Auto) 0 % (0-3) Basophils (%) (Auto) 1 % (0-3) Neutrophils # (Auto) 11.1 x10^3/uL (1.8-7.7) Lymphocytes # (Auto) 1.7 x10^3/uL (1.0-4.8) Monocytes # (Auto) 0.4 x10^3/uL (0.0-1.1) Eosinophils # (Auto) 0.0 x10^3/uL (0.0-0.7) Basophils # (Auto) 0.2 x10^3/uL (0.0-0.2) Sodium Level 132 mmol/L (136-145) Potassium Level 4.3 mmol/L (3.5-5.1) Chloride Level 95 mmol/L (98-107) Carbon Dioxide Level 22 mmol/L (21-32) Anion Gap 15 (6-14) Blood Urea Nitrogen 37 mg/dL (7-20) Creatinine 1.2 mg/dL (0.6-1.0) Estimated GFR (Cockcroft-Gault) 49.3 BUN/Creatinine Ratio 31 (6-20) Glucose Level 634 mg/dL (70-99) Calcium Level 8.7 mg/dL (8.5-10.1) Total Bilirubin 0.3 mg/dL (0.2-1.0) Aspartate Amino Transf (AST/SGOT) 40 U/L (15-37) Alanine Aminotransferase (ALT/SGPT) 32 U/L (14-59) Alkaline Phosphatase 152 U/L (46-116) Total Protein 6.9 g/dL (6.4-8.2) Albumin 2.6 g/dL (3.4-5.0) Albumin/Globulin Ratio 0.6 (1.0-1.7) Assessment and Plan Assessmemt and Plan Problems Medical Problems: (1) Atypical pneumonia Status: Acute (2) Hypoxia Status: Acute (3) Shortness of breath Status: Acute Comment Review of Relevant I have reviewed the following items rodney (where applicable) has been applied. Medications: Current Medications Medications (Trade) Dose Ordered Sig/Kailyn Route PRN Reason Start Time Stop Time Status Last Admin Dose Admin Albuterol/ Ipratropium (Duoneb) 3 ml 1X ONCE NEB 06/13/21 12:30 06/13/21 12:38 DC 06/13/21 12:34 Methylprednisolone Sodium Succinate (SOLU-Medrol 125MG VIAL) 125 mg 1X ONCE IV 06/13/21 12:30 06/13/21 12:38 DC 06/13/21 12:53 Albuterol Sulfate (Ventolin Neb Soln) 2.5 mg 1X ONCE NEB 06/13/21 13:15 06/13/21 13:16 DC 06/13/21 13:29 Terbutaline Sulfate (Brethine) 0.25 mg 1X ONCE SQ 06/13/21 13:15 06/13/21 13:16 DC 06/13/21 14:07 Sodium Chloride 1,000 ml @ 999 mls/hr 1X ONCE IV 06/13/21 13:30 06/13/21 14:30 DC 06/13/21 14:03 Iohexol (Omnipaque 350 Mg/ml) 90 ml 1X ONCE IV 06/13/21 13:45 06/13/21 13:49 DC 06/13/21 13:42 Ceftriaxone Sodium (Rocephin) 1 gm 1X ONCE IVP 06/13/21 14:15 06/13/21 14:16 DC 06/13/21 14:58 Doxycycline Hyclate 100 mg/ Dextrose 100 ml @ 50 mls/hr 1X ONCE IV 06/13/21 14:15 06/13/21 16:14 DC 06/13/21 14:58 Insulin Human Lispro (HumaLOG) 0-9 UNITS TIDWMEALHC SQ 06/13/21 21:00 06/14/21 08:40 Insulin Human Lispro (HumaLOG) 10 units TIDWMEALS SQ 06/14/21 08:00 06/14/21 08:41 Insulin Human Lispro (HumaLOG) 15 units 1X ONCE SQ 06/13/21 19:30 06/13/21 19:31 DC 06/13/21 19:30 Alprazolam (Xanax) 0.5 mg PRN Q8HRS PRN PO ANXIETY / AGITATION 06/13/21 20:15 06/13/21 21:31 Doxycycline Hyclate (Vibra-Tab) 100 mg BID PO 06/13/21 21:00 06/14/21 09:29 Albuterol/ Ipratropium (Duoneb) 3 ml Q4HRS W/A NEB 06/13/21 22:00 06/14/21 07:57 Prednisone (Prednisone) 40 mg DAILY PO 06/14/21 09:00 06/14/21 09:29 Enoxaparin Sodium (Lovenox 40mg Syringe) 40 mg Q24H SQ 06/13/21 21:00 06/13/21 21:31 Guaifenesin/ Codeine Phosphate (Robitussin Ac) 5 ml PRN Q6HRS PRN PO COUGH 06/13/21 21:45 06/13/21 22:10 Benzonatate (Tessalon Perle) 100 mg [id number] PO 06/14/21 09:00 06/14/21 09:29 Insulin Glargine (Lantus Syringe) 10 unit BID SQ 06/14/21 09:00 06/14/21 09:32 Justifications for Admission Other Justification TYLOR DAVISON MD Jun 14, 2021 10:39
--- NOTE | 2021-06-14 10:51 | CONS ---
DATE OF CONSULTATION: 06/14/2021 PULMONARY CONSULTATION ATTENDING PHYSICIAN: Monica Mary MD REASON FOR CONSULTATION: Pneumonia. HISTORY OF PRESENT ILLNESS: The patient is a 40-year-old obese female with a BMI of 34. She is a smoker for 20 years. The patient was brought into the hospital complaining of shortness of breath. She also has a cough for last 4 days, this was nonproductive. Her grandson was also sick with the same complaint. The patient did receive COVID vaccine. She never had COVID. No headaches, no nausea, vomiting, no diarrhea, no dysuria. No leg edema. The patient underwent CT chest, which was reviewed by me. There was no evidence of pulmonary embolism. There were bilateral extensive reticular nodular infiltrates along with bilateral consolidation. She had mild reactive lymphadenopathy. She is currently on oxygen. She was started on DuoNebs as well as doxycycline and Rocephin. I have been asked to see her for further evaluation. PAST MEDICAL HISTORY: Significant for history of tobaccoism, likely COPD. History of anxiety disorder, bipolar disorder and low back pain. PAST SURGICAL HISTORY: No recent surgery. ALLERGIES: PENICILLIN, AZITHROMYCIN, LEVAQUIN, MORPHINE AND TRAMADOL. REVIEW OF SYSTEMS: Twelve-point review of systems obtained. Pertinent positives discussed in my present illness, otherwise noncontributory. All systems that were negative were reviewed as well. FAMILY HISTORY: Noncontributory to lungs. SOCIAL HISTORY: One pack per day for last 20 years. PHYSICAL EXAMINATION: VITAL SIGNS: Reviewed. She is afebrile. Pulse ox is 97% on 5 liters. NECK: Supple. LUNGS: With diminished breath sounds. CARDIOVASCULAR: With a regular rate. ABDOMEN: Soft, obese. EXTREMITIES: With no pitting edema. LABORATORY DATA: Labs are reviewed. White cell count 13.4, platelets 301. COVID and influenza negative. Glucose was high. Sodium 132, BUN 37 and creatinine 1.2. ABGs with a pH of 7.43, pCO2 of 37 and pO2 of 70 on 9 liters. IMPRESSION: 1. Acute hypoxic respiratory failure secondary to extensive bilateral pneumonia. In addition, underlying chronic obstructive pulmonary disease would be another contributing factor. 2. Abnormal CT chest with extensive bilateral reticular nodular infiltrates along with bilateral consolidation and reactive adenopathy. She likely has a suspected Gram-negative and Gram-positive pneumonia. She is not immunocompromised. She is updated on COVID vaccine. 3. Underlying obesity. 4. Ongoing tobaccoism, suspect underlying chronic obstructive pulmonary disease. RECOMMENDATIONS: 1. I have discussed with the patient. At this time, we will continue present oxygen, keep saturation 92% and above. 2. We will broaden the antibiotic and add Zyvox for Gram-positive pulmonary coverage. Continue Rocephin and doxycycline. 3. Follow up chest x-ray or CT chest in few days. 4. Lovenox for DVT prophylaxis. 5. Smoking cessation counseling provided. 6. Prednisone can be tapered off. 7. Continue nebulizer treatment. 8. Discussed with RN. JONATHAN/ARLETH DR: Ofelia TID: [id number]
[2021-06-14 11:00] VITALS: BP 111/73
[2021-06-14] MEDS ORDERED: IV NORMAL SALINE 1000ML BAG 1,000 ML IV ONE (11:00)
[2021-06-14] MEDS: guaiFENesin/CODEINE 100mg/10mg 5 ML LIQUID PO PRN ×2 (11:53→21:06)
[2021-06-14 14:07] LABS: CREATININE 1.3 mg/dL (0.6-1.0); GFR 44.9; MAGNESIUM 2.8 mg/dL (1.8-2.4); POTASSIUM 4.2 mmol/L (3.5-5.1)
[2021-06-14 15:00] VITALS: BP 126/57
[2021-06-14] MEDS: cefTRIAXone IV Push 1 GM VIAL. IVP SCH (15:42)
--- NOTE | 2021-06-14 17:38 | NUR ---
PATIENTS' BLOOD SUGAR AT THIS TIME IS 563, DR. NICOLE NOTIFIED AND ORDERS RECEIVED TO GIVE ADDITIONAL 14 UNITS FOR A TOTAL OF 33 UNITS, PATIENT ALERT AND VERBALLY RESPONSIVE WITHOUT S/S OF HYPOGLYCEMIA. Addendum: 06/14/21 at 1823 by EMILY METZGER RN PATIENT WITHOUT S/S OF HYPERGLYCEMIA.
[2021-06-14] MEDS ORDERED: INSULIN LISPRO 300 UNITS/3 ML VIAL. SQ ONE (17:45)
[2021-06-14 19:00] VITALS: BP 101/63
[2021-06-14] MEDS: ENOXAPARIN 40 MG/0.4 ML SYRINGE. SQ SCH (21:06)
[2021-06-14] MEDS: ALPRAZolam 0.5 MG TABLET PO PRN (21:06)
[2021-06-14 23:00] VITALS: BP 96/64
[2021-06-15 00:08] LABS: HEMOGLOBIN A1C 13.1 % (4.8-5.6)
[2021-06-15 03:00] VITALS: BP 106/74
[2021-06-15 07:00] VITALS: BP 112/70
[2021-06-15] MEDS: IPRATRPIUM/ALBUTEROL 0.5/2.5MG 3 ML NEBU. NEB SCH ×5 (07:13→22:00)
[2021-06-15] MEDS: INSULIN LISPRO 300 UNITS/3 ML VIAL. SQ SCH ×7 (07:30→21:11)
[2021-06-15] MEDS: NON FORMULARY ITEM (Cariprazine Hydrochloride (Vraylar) 1 CAP) PO SCH (09:00)
[2021-06-15] MEDS: INSULIN GLARGINE SYRINGE. SQ SCH ×3 (09:00→21:11)
[2021-06-15] MEDS: BENZONATATE 100 MG CAPSULE. PO SCH ×3 (09:15→21:02)
[2021-06-15] MEDS: predniSONE 20 MG TABLET PO SCH (09:15)
[2021-06-15] MEDS: DOXYCYCLINE HYCLATE 100 MG TABLET PO SCH ×2 (09:15→21:02)
[2021-06-15 09:28] LABS: BASO # 0.1 x10^3/uL (0.0-0.2); BASO % 0 % (0-3); EOS % 0 % (0-3); HEMATOCRIT 37.6 % (36.0-47.0); HEMOGLOBIN 12.2 g/dL (12.0-15.5); LYMPH # 2.2 x10^3/uL (1.0-4.8); LYMPH % 18 % (24-48); MEAN CORPUSCULAR HEMOGLOBIN 29 pg (25-35); MEAN CORPUSCULAR HGB CONC 33 g/dL (31-37); MEAN CORPUSCULAR VOLUME 90 fL (79-100); MONO # 0.7 x10^3/uL (0.0-1.1); MONO % 5 % (0-9); NEUT # 9.6 x10^3/uL (1.8-7.7); NEUT % 77 % (31-73); PLATELET COUNT 313 x10^3/uL (140-400); RED BLOOD COUNT 4.16 x10^6/uL (3.50-5.40); RED CELL DISTRIBUTION WIDTH 14.1 % (11.5-14.5); WHITE BLOOD COUNT 12.6 x10^3/uL (4.0-11.0)
[2021-06-15 09:47] LABS: CALCIUM 9.2 mg/dL (8.5-10.1); CREATININE 1.1 mg/dL (0.6-1.0); GFR 54.5; MAGNESIUM 2.7 mg/dL (1.8-2.4); POTASSIUM 3.7 mmol/L (3.5-5.1)
--- NOTE | 2021-06-15 09:50 | PDOC ---
PULMONARY PROGRESS NOTES DATE: 06/15/21 TIME: 09:47 Subjective no increase soa remains on O2 Vitals Vital Signs Date Time Temp Pulse Resp B/P (MAP) Pulse Ox O2 Delivery O2 Flow Rate FiO2 06/15/21 07:14 95 Nasal Cannula 5.0 06/15/21 07:00 98.0 67 18 112/70 (84) 98.0 General: Alert Lungs: Clear Cardiovascular: S1 Abdomen: Soft Neuro Exam: Alert Extremities: No Edema Skin: Warm Labs Laboratory Tests Test 06/13/21 12:41 06/13/21 12:46 06/13/21 14:09 06/13/21 18:45 O2 Saturation 94 % (92-99) Arterial Blood pH 7.43 (7.35-7.45) Arterial Blood pCO2 at Patient Temp 37 mmHg (35-46) Arterial Blood pO2 at Patient Temp 70 mmHg (75-108) Arterial Blood HCO3 24 mmol/L (21-28) Arterial Blood Base Excess 0 mmol/L (-3-3) FiO2 56%/9lnc White Blood Count 15.6 x10^3/uL (4.0-11.0) Red Blood Count 4.43 x10^6/uL (3.50-5.40) Hemoglobin 13.5 g/dL (12.0-15.5) Hematocrit 39.5 % (36.0-47.0) Mean Corpuscular Volume 89 fL (79-100) Mean Corpuscular Hemoglobin 31 pg (25-35) Mean Corpuscular Hemoglobin Concent 34 g/dL (31-37) Red Cell Distribution Width 13.9 % (11.5-14.5) Platelet Count 320 x10^3/uL (140-400) Neutrophils (%) (Auto) 80 % (31-73) Lymphocytes (%) (Auto) 11 % (24-48) Monocytes (%) (Auto) 8 % (0-9) Eosinophils (%) (Auto) 0 % (0-3) Basophils (%) (Auto) 1 % (0-3) Neutrophils # (Auto) 12.5 x10^3/uL (1.8-7.7) Lymphocytes # (Auto) 1.7 x10^3/uL (1.0-4.8) Monocytes # (Auto) 1.2 x10^3/uL (0.0-1.1) Eosinophils # (Auto) 0.0 x10^3/uL (0.0-0.7) Basophils # (Auto) 0.2 x10^3/uL (0.0-0.2) Segmented Neutrophils % 70 % (35-66) Band Neutrophils % 6 % (0-9) Lymphocytes % 23 % (24-48) Monocytes % 1 % (0-10) Platelet Estimate Adequate (ADEQUATE) Maternal Serum HCG Beta Subunit < 1 mIU/mL (0-5) Sodium Level 130 mmol/L (136-145) Potassium Level 4.1 mmol/L (3.5-5.1) Chloride Level 94 mmol/L (98-107) Carbon Dioxide Level 25 mmol/L (21-32) Anion Gap 11 (6-14) Blood Urea Nitrogen 14 mg/dL (7-20) Creatinine 1.2 mg/dL (0.6-1.0) Estimated GFR (Cockcroft-Gault) 49.3 BUN/Creatinine Ratio 12 (6-20) Glucose Level 385 mg/dL (70-99) Calcium Level 9.4 mg/dL (8.5-10.1) Total Bilirubin 0.6 mg/dL (0.2-1.0) Aspartate Amino Transf (AST/SGOT) 24 U/L (15-37) Alanine Aminotransferase (ALT/SGPT) 30 U/L (14-59) Alkaline Phosphatase 154 U/L (46-116) Troponin I High Sensitivity < 4 ng/L (4-50) LA-Pxy-H-Type Natriuretic Peptide 193 pg/mL (0-124) Total Protein 8.6 g/dL (6.4-8.2) Albumin 2.8 g/dL (3.4-5.0) Albumin/Globulin Ratio 0.5 (1.0-1.7) Influenza Type A Antigen Negative (NEGATIVE) Influenza Type B Antigen Negative (NEGATIVE) SARS-CoV-2 Antigen (Rapid) Negative (NEGATIVE) Glucose (Fingerstick) 468 mg/dL (70-99) Test 06/13/21 20:28 06/13/21 21:45 06/14/21 08:00 06/14/21 08:03 Glucose (Fingerstick) 597 mg/dL (70-99) 547 mg/dL (70-99) 573 mg/dL (70-99) Coronavirus (COVID-19)(PCR) Not detected (NOT DETECTD) Test 06/14/21 09:07 06/14/21 11:27 06/14/21 13:30 06/14/21 16:39 White Blood Count 13.4 x10^3/uL (4.0-11.0) Red Blood Count 4.34 x10^6/uL (3.50-5.40) Hemoglobin 12.9 g/dL (12.0-15.5) Hematocrit 39.7 % (36.0-47.0) Mean Corpuscular Volume 92 fL (79-100) Mean Corpuscular Hemoglobin 30 pg (25-35) Mean Corpuscular Hemoglobin Concent 32 g/dL (31-37) Red Cell Distribution Width 14.3 % (11.5-14.5) Platelet Count 301 x10^3/uL (140-400) Neutrophils (%) (Auto) 83 % (31-73) Lymphocytes (%) (Auto) 13 % (24-48) Monocytes (%) (Auto) 3 % (0-9) Eosinophils (%) (Auto) 0 % (0-3) Basophils (%) (Auto) 1 % (0-3) Neutrophils # (Auto) 11.1 x10^3/uL (1.8-7.7) Lymphocytes # (Auto) 1.7 x10^3/uL (1.0-4.8) Monocytes # (Auto) 0.4 x10^3/uL (0.0-1.1) Eosinophils # (Auto) 0.0 x10^3/uL (0.0-0.7) Basophils # (Auto) 0.2 x10^3/uL (0.0-0.2) Sodium Level 132 mmol/L (136-145) 132 mmol/L (136-145) Potassium Level 4.3 mmol/L (3.5-5.1) 4.2 mmol/L (3.5-5.1) Chloride Level 95 mmol/L (98-107) 96 mmol/L (98-107) Carbon Dioxide Level 22 mmol/L (21-32) 23 mmol/L (21-32) Anion Gap 15 (6-14) 13 (6-14) Blood Urea Nitrogen 37 mg/dL (7-20) 36 mg/dL (7-20) Creatinine 1.2 mg/dL (0.6-1.0) 1.3 mg/dL (0.6-1.0) Estimated GFR (Cockcroft-Gault) 49.3 44.9 BUN/Creatinine Ratio 31 (6-20) Glucose Level 634 mg/dL (70-99) 638 mg/dL (70-99) Hemoglobin A1c 13.1 % (4.8-5.6) Calcium Level 8.7 mg/dL (8.5-10.1) 9.0 mg/dL (8.5-10.1) Total Bilirubin 0.3 mg/dL (0.2-1.0) Aspartate Amino Transf (AST/SGOT) 40 U/L (15-37) Alanine Aminotransferase (ALT/SGPT) 32 U/L (14-59) Alkaline Phosphatase 152 U/L (46-116) Total Protein 6.9 g/dL (6.4-8.2) Albumin 2.6 g/dL (3.4-5.0) Albumin/Globulin Ratio 0.6 (1.0-1.7) Glucose (Fingerstick) 560 mg/dL (70-99) 563 mg/dL (70-99) Magnesium Level 2.8 mg/dL (1.8-2.4) Test 06/14/21 20:40 06/15/21 07:14 06/15/21 08:50 Glucose (Fingerstick) 541 mg/dL (70-99) 340 mg/dL (70-99) White Blood Count 12.6 x10^3/uL (4.0-11.0) Red Blood Count 4.16 x10^6/uL (3.50-5.40) Hemoglobin 12.2 g/dL (12.0-15.5) Hematocrit 37.6 % (36.0-47.0) Mean Corpuscular Volume 90 fL (79-100) Mean Corpuscular Hemoglobin 29 pg (25-35) Mean Corpuscular Hemoglobin Concent 33 g/dL (31-37) Red Cell Distribution Width 14.1 % (11.5-14.5) Platelet Count 313 x10^3/uL (140-400) Neutrophils (%) (Auto) 77 % (31-73) Lymphocytes (%) (Auto) 18 % (24-48) Monocytes (%) (Auto) 5 % (0-9) Eosinophils (%) (Auto) 0 % (0-3) Basophils (%) (Auto) 0 % (0-3) Neutrophils # (Auto) 9.6 x10^3/uL (1.8-7.7) Lymphocytes # (Auto) 2.2 x10^3/uL (1.0-4.8) Monocytes # (Auto) 0.7 x10^3/uL (0.0-1.1) Eosinophils # (Auto) 0.0 x10^3/uL (0.0-0.7) Basophils # (Auto) 0.1 x10^3/uL (0.0-0.2) Laboratory Tests Test 06/14/21 11:27 06/14/21 13:30 06/14/21 16:39 06/14/21 20:40 Glucose (Fingerstick) 560 mg/dL (70-99) 563 mg/dL (70-99) 541 mg/dL (70-99) Sodium Level 132 mmol/L (136-145) Potassium Level 4.2 mmol/L (3.5-5.1) Chloride Level 96 mmol/L (98-107) Carbon Dioxide Level 23 mmol/L (21-32) Anion Gap 13 (6-14) Blood Urea Nitrogen 36 mg/dL (7-20) Creatinine 1.3 mg/dL (0.6-1.0) Estimated GFR (Cockcroft-Gault) 44.9 Glucose Level 638 mg/dL (70-99) Calcium Level 9.0 mg/dL (8.5-10.1) Magnesium Level 2.8 mg/dL (1.8-2.4) Test 06/15/21 07:14 06/15/21 08:50 Glucose (Fingerstick) 340 mg/dL (70-99) White Blood Count 12.6 x10^3/uL (4.0-11.0) Red Blood Count 4.16 x10^6/uL (3.50-5.40) Hemoglobin 12.2 g/dL (12.0-15.5) Hematocrit 37.6 % (36.0-47.0) Mean Corpuscular Volume 90 fL (79-100) Mean Corpuscular Hemoglobin 29 pg (25-35) Mean Corpuscular Hemoglobin Concent 33 g/dL (31-37) Red Cell Distribution Width 14.1 % (11.5-14.5) Platelet Count 313 x10^3/uL (140-400) Neutrophils (%) (Auto) 77 % (31-73) Lymphocytes (%) (Auto) 18 % (24-48) Monocytes (%) (Auto) 5 % (0-9) Eosinophils (%) (Auto) 0 % (0-3) Basophils (%) (Auto) 0 % (0-3) Neutrophils # (Auto) 9.6 x10^3/uL (1.8-7.7) Lymphocytes # (Auto) 2.2 x10^3/uL (1.0-4.8) Monocytes # (Auto) 0.7 x10^3/uL (0.0-1.1) Eosinophils # (Auto) 0.0 x10^3/uL (0.0-0.7) Basophils # (Auto) 0.1 x10^3/uL (0.0-0.2) Medications Active Scripts Medications Dose Route/Sig Max Daily Dose Days Date Category Trulicity (Dulaglutide) 1.5 Mg/0.5 Ml Pen.injctr 1.5 Mg SQ WEEKLY 06/13/21 Reported Vraylar (Cariprazine Hydrochloride) 4.5 Mg Capsule 1 Cap PO DAILY 30 06/13/21 Reported Impression . 1. Acute hypoxic respiratory failure secondary to extensive bilateral pneumonia. In addition, underlying chronic obstructive pulmonary disease would be another contributing factor. 2. Abnormal CT chest with extensive bilateral reticular nodular infiltrates along with bilateral consolidation and reactive adenopathy. She likely has a suspected Gram-negative and Gram-positive pneumonia. She is not immunocompromised. She is updated on COVID vaccine. 3. Underlying obesity. 4. Ongoing tobaccoism, suspect underlying chronic obstructive pulmonary disease. Plan . 1. I have discussed with the patient. At this time, we will continue present oxygen, keep saturation 92% and above. 2. Continue antibiotic and add Zyvox for Gram-positive pulmonary coverage. Continue Rocephin and doxycycline. 3. Follow up chest x-ray or CT chest in few days. 4. Lovenox for DVT prophylaxis. 5. Smoking cessation counseling provided. 6. Prednisone can be tapered off. 7. Continue nebulizer treatment. 8. Discussed with RN. JUJU VALERO MD Jun 15, 2021 09:50
[2021-06-15] MEDS: guaiFENesin/CODEINE 100mg/10mg 5 ML LIQUID PO PRN ×2 (10:56→21:02)
[2021-06-15 11:00] VITALS: BP 109/69
--- NOTE | 2021-06-15 11:09 | PDOC ---
[employer] PROGRESS NOTE Date of Service DOS: DATE: 06/15/21 TIME: 11:08 Chief Complaint Chief Complaint Assessment/Plan acute hypoxic respiratory failure sepsis pneumonia - rocephin and doxy COPD with acute exacerbation, steroids and nebs, asthma Tobacco abuse disorder, ongoing Bipolar disorder, controlled on meds obese, BMI 34 History of Present Illness History of Present Illness 40-year-old female admit form the ER with acutely worse shortness of breath. Over 4 days w/ increased shortness of breath, cough today. She was at the park today and could not breathe well, had some panic sensation that she could not breathe. Prior hypoxia with illness, no home 02. Hypoxic in field 81%, she walked in to the ER. NOramlly, smokes 2 packs/day but quit 4 days due to not feeling well, her home breathing treatments were not helping. had 2 Covid vaccines 06/14/2021 No acute events overnight. Patient seen examined bedside. Patient requiring 5 L nasal cannula saturating 97%. Not dyspneic upon my encounter. Tolerating br eakfast. Blood sugars this morning at 573. Sliding scale and 10 units premeals given. Started on 10 units glargine twice daily. Will start on IV fluids. 06/15/2021 No acute events overnight. Patient seen examined bedside. AF and VSS. Patient not dyspneic at my encounter. Still requiring 5 L nasal cannula oxygen titrated down to 4 L nasal cannula saturating 95%. WBC trending down nicely. Sugars have been better controlled. Patient does take Trulicity and glyburide. Patient endorses that she does smoke 2 packs/day. Smoking counseling offered. Patient's chart, labs, images were reviewed and discussed with RN Vitals/I&O Vitals/I&O: Vital Signs Date Time Temp Pulse Resp B/P (MAP) Pulse Ox O2 Delivery O2 Flow Rate FiO2 06/15/21 08:00 Nasal Cannula 5.0 06/15/21 07:14 95 06/15/21 07:00 98.0 67 18 112/70 (84) 98.0 I & O 06/14/21 06/14/21 06/15/21 15:00 23:00 07:00 Intake Total 380 ml 180 ml 400 ml Balance 380 ml 180 ml 400 ml Physical Exam General: Alert, Oriented X3, No acute distress, mild distress Heart: Regular rate Lungs: Clear Abdomen: Normal bowel sounds, Soft, No tenderness Extremities: No clubbing, No edema Skin: No rashes, No significant lesion Labs Labs: Laboratory Tests Test 06/14/21 11:27 06/14/21 13:30 06/14/21 16:39 06/14/21 20:40 Glucose (Fingerstick) 560 mg/dL (70-99) 563 mg/dL (70-99) 541 mg/dL (70-99) Sodium Level 132 mmol/L (136-145) Potassium Level 4.2 mmol/L (3.5-5.1) Chloride Level 96 mmol/L (98-107) Carbon Dioxide Level 23 mmol/L (21-32) Anion Gap 13 (6-14) Blood Urea Nitrogen 36 mg/dL (7-20) Creatinine 1.3 mg/dL (0.6-1.0) Estimated GFR (Cockcroft-Gault) 44.9 Glucose Level 638 mg/dL (70-99) Calcium Level 9.0 mg/dL (8.5-10.1) Magnesium Level 2.8 mg/dL (1.8-2.4) Test 06/15/21 07:14 06/15/21 08:50 Glucose (Fingerstick) 340 mg/dL (70-99) White Blood Count 12.6 x10^3/uL (4.0-11.0) Red Blood Count 4.16 x10^6/uL (3.50-5.40) Hemoglobin 12.2 g/dL (12.0-15.5) Hematocrit 37.6 % (36.0-47.0) Mean Corpuscular Volume 90 fL (79-100) Mean Corpuscular Hemoglobin 29 pg (25-35) Mean Corpuscular Hemoglobin Concent 33 g/dL (31-37) Red Cell Distribution Width 14.1 % (11.5-14.5) Platelet Count 313 x10^3/uL (140-400) Neutrophils (%) (Auto) 77 % (31-73) Lymphocytes (%) (Auto) 18 % (24-48) Monocytes (%) (Auto) 5 % (0-9) Eosinophils (%) (Auto) 0 % (0-3) Basophils (%) (Auto) 0 % (0-3) Neutrophils # (Auto) 9.6 x10^3/uL (1.8-7.7) Lymphocytes # (Auto) 2.2 x10^3/uL (1.0-4.8) Monocytes # (Auto) 0.7 x10^3/uL (0.0-1.1) Eosinophils # (Auto) 0.0 x10^3/uL (0.0-0.7) Basophils # (Auto) 0.1 x10^3/uL (0.0-0.2) Sodium Level 137 mmol/L (136-145) Potassium Level 3.7 mmol/L (3.5-5.1) Chloride Level 102 mmol/L (98-107) Carbon Dioxide Level 27 mmol/L (21-32) Anion Gap 8 (6-14) Blood Urea Nitrogen 32 mg/dL (7-20) Creatinine 1.1 mg/dL (0.6-1.0) Estimated GFR (Cockcroft-Gault) 54.5 Glucose Level 348 mg/dL (70-99) Calcium Level 9.2 mg/dL (8.5-10.1) Magnesium Level 2.7 mg/dL (1.8-2.4) Assessment and Plan Assessmemt and Plan Problems Medical Problems: (1) Atypical pneumonia Status: Acute (2) Hypoxia Status: Acute (3) Shortness of breath Status: Acute Comment Review of Relevant I have reviewed the following items rodney (where applicable) has been applied. Medications: Current Medications Medications (Trade) Dose Ordered Sig/Kailyn Route PRN Reason Start Time Stop Time Status Last Admin Dose Admin Ceftriaxone Sodium (Rocephin) 1 gm Q24H IVP 06/14/21 14:00 06/14/21 15:42 Insulin Human Lispro (HumaLOG) 14 units 1X ONCE SQ 06/14/21 17:45 06/14/21 17:53 DC 06/14/21 17:50 Insulin Glargine (Lantus Syringe) 25 unit BID SQ 06/15/21 08:30 06/15/21 09:00 Justifications for Admission Other Justification TYLOR DAVISON MD Jun 15, 2021 11:09
[2021-06-15 15:00] VITALS: BP 124/72
[2021-06-15] MEDS: cefTRIAXone IV Push 1 GM VIAL. IVP SCH (16:13)
[2021-06-15] MEDS ORDERED: INSULIN LISPRO 300 UNITS/3 ML VIAL. SQ ONE (17:45)
[2021-06-15 19:00] VITALS: BP 125/73
[2021-06-15] MEDS: ENOXAPARIN 40 MG/0.4 ML SYRINGE. SQ SCH (21:02)
[2021-06-15] MEDS: ALPRAZolam 0.5 MG TABLET PO PRN (21:02)
[2021-06-15] MEDS: LACTOBACILLUS RHAMNOSUS GG 1 CAPSULE. PO SCH (21:02)
[2021-06-15 23:00] VITALS: BP_SYST 126; BP_SYST 142; BP_DIAS 67; BP_DIAS 75
[2021-06-16 03:00] VITALS: BP 105/70
[2021-06-16 07:00] VITALS: BP 117/72
[2021-06-16] MEDS: IPRATRPIUM/ALBUTEROL 0.5/2.5MG 3 ML NEBU. NEB SCH ×4 (07:42→20:01)
[2021-06-16] MEDS: INSULIN LISPRO 300 UNITS/3 ML VIAL. SQ SCH ×7 (08:00→21:45)
[2021-06-16] MEDS: BENZONATATE 100 MG CAPSULE. PO SCH ×3 (08:15→20:26)
[2021-06-16] MEDS: predniSONE 20 MG TABLET PO SCH (08:15)
[2021-06-16] MEDS: LACTOBACILLUS RHAMNOSUS GG 1 CAPSULE. PO SCH ×2 (08:15→20:26)
[2021-06-16] MEDS: guaiFENesin/CODEINE 100mg/10mg 5 ML LIQUID PO PRN ×3 (08:15→20:26)
[2021-06-16] MEDS: DOXYCYCLINE HYCLATE 100 MG TABLET PO SCH ×2 (08:16→20:26)
--- NOTE | 2021-06-16 09:38 | PDOC ---
PULMONARY PROGRESS NOTES DATE: 06/16/21 TIME: 09:36 Subjective Patient remains on nasal cannula oxygen, reports ongoing cough, denies any shortness of breath, afebrile, no overnight concerns from nursing Vitals Vital Signs Date Time Temp Pulse Resp B/P (MAP) Pulse Ox O2 Delivery O2 Flow Rate FiO2 06/16/21 07:43 94 Nasal Cannula 3.5 06/16/21 07:00 98.1 85 24 117/72 (87) 98.1 ROS: No Nausea, No Chest Pain, No Abdominal Pain, No Increase Cough General: Alert, Oriented X4 Lungs: Clear Cardiovascular: S1 Abdomen: Soft Neuro Exam: Alert, Oriented Extremities: No Edema Skin: Warm, Dry Labs Laboratory Tests Test 06/14/21 11:27 06/14/21 13:30 06/14/21 16:39 06/14/21 20:40 Glucose (Fingerstick) 560 mg/dL (70-99) 563 mg/dL (70-99) 541 mg/dL (70-99) Sodium Level 132 mmol/L (136-145) Potassium Level 4.2 mmol/L (3.5-5.1) Chloride Level 96 mmol/L (98-107) Carbon Dioxide Level 23 mmol/L (21-32) Anion Gap 13 (6-14) Blood Urea Nitrogen 36 mg/dL (7-20) Creatinine 1.3 mg/dL (0.6-1.0) Estimated GFR (Cockcroft-Gault) 44.9 Glucose Level 638 mg/dL (70-99) Calcium Level 9.0 mg/dL (8.5-10.1) Magnesium Level 2.8 mg/dL (1.8-2.4) Test 06/15/21 07:14 06/15/21 08:50 06/15/21 12:10 06/15/21 17:04 Glucose (Fingerstick) 340 mg/dL (70-99) 273 mg/dL (70-99) 393 mg/dL (70-99) White Blood Count 12.6 x10^3/uL (4.0-11.0) Red Blood Count 4.16 x10^6/uL (3.50-5.40) Hemoglobin 12.2 g/dL (12.0-15.5) Hematocrit 37.6 % (36.0-47.0) Mean Corpuscular Volume 90 fL (79-100) Mean Corpuscular Hemoglobin 29 pg (25-35) Mean Corpuscular Hemoglobin Concent 33 g/dL (31-37) Red Cell Distribution Width 14.1 % (11.5-14.5) Platelet Count 313 x10^3/uL (140-400) Neutrophils (%) (Auto) 77 % (31-73) Lymphocytes (%) (Auto) 18 % (24-48) Monocytes (%) (Auto) 5 % (0-9) Eosinophils (%) (Auto) 0 % (0-3) Basophils (%) (Auto) 0 % (0-3) Neutrophils # (Auto) 9.6 x10^3/uL (1.8-7.7) Lymphocytes # (Auto) 2.2 x10^3/uL (1.0-4.8) Monocytes # (Auto) 0.7 x10^3/uL (0.0-1.1) Eosinophils # (Auto) 0.0 x10^3/uL (0.0-0.7) Basophils # (Auto) 0.1 x10^3/uL (0.0-0.2) Sodium Level 137 mmol/L (136-145) Potassium Level 3.7 mmol/L (3.5-5.1) Chloride Level 102 mmol/L (98-107) Carbon Dioxide Level 27 mmol/L (21-32) Anion Gap 8 (6-14) Blood Urea Nitrogen 32 mg/dL (7-20) Creatinine 1.1 mg/dL (0.6-1.0) Estimated GFR (Cockcroft-Gault) 54.5 Glucose Level 348 mg/dL (70-99) Calcium Level 9.2 mg/dL (8.5-10.1) Magnesium Level 2.7 mg/dL (1.8-2.4) Test 06/15/21 20:45 06/16/21 07:09 Glucose (Fingerstick) 295 mg/dL (70-99) 94 mg/dL (70-99) Laboratory Tests Test 06/15/21 12:10 06/15/21 17:04 06/15/21 20:45 06/16/21 07:09 Glucose (Fingerstick) 273 mg/dL (70-99) 393 mg/dL (70-99) 295 mg/dL (70-99) 94 mg/dL (70-99) Medications Active Scripts Medications Dose Route/Sig Max Daily Dose Days Date Category Trulicity (Dulaglutide) 1.5 Mg/0.5 Ml Pen.injctr 1.5 Mg SQ WEEKLY 06/13/21 Reported Vraylar (Cariprazine Hydrochloride) 4.5 Mg Capsule 1 Cap PO DAILY 30 06/13/21 Reported Impression . 1. Acute hypoxic respiratory failure secondary to extensive bilateral pneumonia. In addition, underlying chronic obstructive pulmonary disease would be another contributing factor.--- Slowly improving 2. Abnormal CT chest with extensive bilateral reticular nodular infiltrates along with bilateral consolidation and reactive adenopathy. She likely has a suspected Gram-negative and Gram-positive pneumonia. She is not immunocompromised. She is updated on COVID vaccine. 3. Underlying obesity. 4. Ongoing tobaccoism, suspect underlying chronic obstructive pulmonary disease. 5. Diabetes type 2 Plan . Updated 06/16/2021 Continue supplemental oxygen to keep oxygen saturations greater than 92%, current 3 L nasal cannula Bronchodilators as needed Antitussive as needed Steroids with slow taper Continue antibiotics currently on Rocephin, doxycycline and Zyvox Follow-up chest x-ray on Saturday Diabetes type 2 per PCP Physical therapy/Occupational Therapy--out of bed as tolerated DVT/GI prophylaxis Discussed with RN 1. I have discussed with the patient. At this time, we will continue present oxygen, keep saturation 92% and above. 2. Continue antibiotic and add Zyvox for Gram-positive pulmonary coverage. Continue Rocephin and doxycycline. 3. Follow up chest x-ray or CT chest in few days. 4. Lovenox for DVT prophylaxis. 5. Smoking cessation counseling provided. 6. Prednisone can be tapered off. 7. Continue nebulizer treatment. 8. Discussed with RN. JUJU VALERO MD Jun 16, 2021 09:38
--- NOTE | 2021-06-16 10:13 | PDOC ---
[employer] PROGRESS NOTE Date of Service DOS: DATE: 06/16/21 TIME: 10:11 Chief Complaint Chief Complaint Assessment/Plan acute hypoxic respiratory failure sepsis pneumonia - rocephin and doxy COPD with acute exacerbation, steroids and nebs, asthma Tobacco abuse disorder, ongoing Bipolar disorder, controlled on meds obese, BMI 34 History of Present Illness History of Present Illness 40-year-old female admit form the ER with acutely worse shortness of breath. Over 4 days w/ increased shortness of breath, cough today. She was at the park today and could not breathe well, had some panic sensation that she could not breathe. Prior hypoxia with illness, no home 02. Hypoxic in field 81%, she walked in to the ER. NOramlly, smokes 2 packs/day but quit 4 days due to not feeling well, her home breathing treatments were not helping. had 2 Covid vaccines 06/14/2021 No acute events overnight. Patient seen examined bedside. Patient requiring 5 L nasal cannula saturating 97%. Not dyspneic upon my encounter. Tolerating br eakfast. Blood sugars this morning at 573. Sliding scale and 10 units premeals given. Started on 10 units glargine twice daily. Will start on IV fluids. 06/15/2021 No acute events overnight. Patient seen examined bedside. AF and VSS. Patient not dyspneic at my encounter. Still requiring 5 L nasal cannula oxygen titrated down to 4 L nasal cannula saturating 95%. WBC trending down nicely. Sugars have been better controlled. Patient does take Trulicity and glyburide. Patient endorses that she does smoke 2 packs/day. Smoking counseling offered. Patient's chart, labs, images were reviewed and discussed with RN 06/16/2021 No acute events overnight. Patient seen examined bedside. AF and VSS. Requiring less O2 today and saturating well. Plan for chest x-ray this Saturday. Discussed with pulmonary. 6-minute walk test before discharge. Patient's chart, labs, images were reviewed and discussed with RN Vitals/I&O Vitals/I&O: Vital Signs Date Time Temp Pulse Resp B/P (MAP) Pulse Ox O2 Delivery O2 Flow Rate FiO2 06/16/21 07:43 94 Nasal Cannula 3.5 06/16/21 07:00 98.1 85 24 117/72 (87) 98.1 I & O 06/15/21 06/15/21 06/16/21 15:00 23:00 07:00 Intake Total 200 ml 120 ml Balance 200 ml 120 ml Physical Exam General: Alert, Oriented X3, No acute distress, mild distress Heart: Regular rate Lungs: Clear Abdomen: Normal bowel sounds, Soft, No tenderness Extremities: No clubbing, No edema Skin: No rashes, No significant lesion Labs Labs: Laboratory Tests Test 06/15/21 12:10 06/15/21 17:04 06/15/21 20:45 06/16/21 07:09 Glucose (Fingerstick) 273 mg/dL (70-99) 393 mg/dL (70-99) 295 mg/dL (70-99) 94 mg/dL (70-99) Assessment and Plan Assessmemt and Plan Problems Medical Problems: (1) Atypical pneumonia Status: Acute (2) Hypoxia Status: Acute (3) Shortness of breath Status: Acute Comment Review of Relevant I have reviewed the following items rodney (where applicable) has been applied. Medications: Current Medications Medications (Trade) Dose Ordered Sig/Kailyn Route PRN Reason Start Time Stop Time Status Last Admin Dose Admin Lactobacillus Rhamnosus (Culturelle) 1 cap BID PO 06/15/21 21:00 06/16/21 08:15 Insulin Human Lispro (HumaLOG) 6 units 1X ONCE SQ 06/15/21 17:45 06/15/21 17:46 DC 06/15/21 17:43 Justifications for Admission Other Justification TYLOR DAVISON MD Jun 16, 2021 10:13
[2021-06-16 11:00] VITALS: BP 121/57
--- NOTE | 2021-06-16 12:48 | NUR ---
SW following. Discussed with RN, pt from home with family, 5L (uses 2L at home), cardiac diet, COVID-19 negative. Pt not medically stable for discharge at this time. SW will continue to follow.
[2021-06-16] MEDS: INSULIN GLARGINE SYRINGE. SQ SCH ×2 (12:52→21:44)
[2021-06-16] MEDS: cefTRIAXone IV Push 1 GM VIAL. IVP SCH (14:23)
[2021-06-16 15:00] VITALS: BP 118/74
[2021-06-16 19:00] VITALS: BP 116/63
[2021-06-16] MEDS: ALPRAZolam 0.5 MG TABLET PO PRN (20:34)
[2021-06-16] MEDS: ZOLPIDEM 5 MG TABLET. PO PRN (20:34)
[2021-06-16] MEDS: ENOXAPARIN 40 MG/0.4 ML SYRINGE. SQ SCH (20:35)
[2021-06-16 23:00] VITALS: BP 128/71
[2021-06-17] MEDS: guaiFENesin/CODEINE 100mg/10mg 5 ML LIQUID PO PRN ×3 (02:29→21:40)
[2021-06-17 03:00] VITALS: BP 134/89
[2021-06-17 07:00] VITALS: BP 129/91
[2021-06-17] MEDS: IPRATRPIUM/ALBUTEROL 0.5/2.5MG 3 ML NEBU. NEB SCH ×4 (07:25→20:38)
[2021-06-17] MEDS: INSULIN LISPRO 300 UNITS/3 ML VIAL. SQ SCH ×7 (08:00→21:38)
[2021-06-17] MEDS: DOXYCYCLINE HYCLATE 100 MG TABLET PO SCH ×2 (08:11→21:29)
[2021-06-17] MEDS: BENZONATATE 100 MG CAPSULE. PO SCH ×3 (08:11→21:29)
[2021-06-17] MEDS: predniSONE 20 MG TABLET PO SCH (08:11)
[2021-06-17] MEDS: LACTOBACILLUS RHAMNOSUS GG 1 CAPSULE. PO SCH ×2 (08:11→21:30)
[2021-06-17] MEDS ORDERED: LINE600T12 PO (08:47)
[2021-06-17] MEDS ORDERED: DOXY100T PO (08:47)
--- NOTE | 2021-06-17 08:48 | DISCH ---
DISCHARGE INSTRUCTIONS Condition on Discharge Condition on Discharge: Stable Activity After Discharge Activity Instructions for Disc: Activity as tolerated Exercise Instruction after Dis: Walk 30 min, 5 x per week Driving Instructions after Dis: Do not drive today Diet after Discharge Diet after Discharge: Cardiac, Diabetic No Calorie Level Follow-Up Follow up with: PCP within 2 weeks of discharge TYLOR DAVISON MD Jun 17, 2021 08:48
--- NOTE | 2021-06-17 09:20 | PDOC ---
PULMONARY PROGRESS NOTES DATE: 06/17/21 TIME: 09:18 Subjective Patient remains on nasal cannula oxygen, patient reports that she feels about the same today, intermittent shortness of breath, and consistent cough that is nonproductive Afebrile, no overnight concerns from nursing Vitals Vital Signs Date Time Temp Pulse Resp B/P (MAP) Pulse Ox O2 Delivery O2 Flow Rate FiO2 06/17/21 08:00 Nasal Cannula 2.0 06/17/21 07:25 96 06/17/21 07:00 97.8 80 20 129/91 (104) 97.8 ROS: No Nausea, No Chest Pain, No Abdominal Pain General: Alert, Oriented X4 Lungs: Clear Cardiovascular: S1 Abdomen: Soft Neuro Exam: Alert, Oriented Extremities: No Edema Skin: Warm, Dry Labs Laboratory Tests Test 06/15/21 12:10 06/15/21 17:04 06/15/21 20:45 06/16/21 07:09 Glucose (Fingerstick) 273 mg/dL (70-99) 393 mg/dL (70-99) 295 mg/dL (70-99) 94 mg/dL (70-99) Test 06/16/21 11:16 06/16/21 16:37 06/16/21 21:05 06/17/21 07:08 Glucose (Fingerstick) 192 mg/dL (70-99) 265 mg/dL (70-99) 292 mg/dL (70-99) 91 mg/dL (70-99) Laboratory Tests Test 06/16/21 11:16 06/16/21 16:37 06/16/21 21:05 06/17/21 07:08 Glucose (Fingerstick) 192 mg/dL (70-99) 265 mg/dL (70-99) 292 mg/dL (70-99) 91 mg/dL (70-99) Medications Active Scripts Medications Dose Route/Sig Max Daily Dose Days Date Category Trulicity (Dulaglutide) 1.5 Mg/0.5 Ml Pen.injctr 1.5 Mg SQ WEEKLY 06/13/21 Reported Vraylar (Cariprazine Hydrochloride) 4.5 Mg Capsule 1 Cap PO DAILY 30 06/13/21 Reported Comments Chest x-ray, reviewed, no interval change Impression . 1. Acute hypoxic respiratory failure secondary to extensive bilateral pneumonia. In addition, underlying chronic obstructive pulmonary disease would be another contributing factor.--- Slowly improving 2. Abnormal CT chest with extensive bilateral reticular nodular infiltrates along with bilateral consolidation and reactive adenopathy. She likely has a suspected Gram-negative and Gram-positive pneumonia. She is not immunocompromised. She is updated on COVID vaccine. 3. Underlying obesity. 4. Ongoing tobaccoism, suspect underlying chronic obstructive pulmonary disease. 5. Diabetes type 2 Plan . Updated 06/17/2021 Continue supplemental oxygen to keep oxygen saturations greater than 92%, curr ent 3 L nasal cannula No change in chest x-ray today, consult ID for further recommendations in regards to antibiotic therapy as patient has multiple allergies, patient may benefit from bronchoscopy on Saturday 6-minute walk prior to discharge Bronchodilators as needed Antitussive as needed Steroids with slow taper Continue antibiotics currently on Rocephin, doxycycline and Zyvox Physical therapy/Occupational Therapy--out of bed as tolerated DVT/GI prophylaxis Discussed with RN Updated 06/16/2021 Continue supplemental oxygen to keep oxygen saturations greater than 92%, current 3 L nasal cannula Bronchodilators as needed Antitussive as needed Steroids with slow taper Continue antibiotics currently on Rocephin, doxycycline and Zyvox Follow-up chest x-ray on Saturday Diabetes type 2 per PCP Physical therapy/Occupational Therapy--out of bed as tolerated DVT/GI prophylaxis Discussed with RN 1. I have discussed with the patient. At this time, we will continue present oxygen, keep saturation 92% and above. 2. Continue antibiotic and add Zyvox for Gram-positive pulmonary coverage. Continue Rocephin and doxycycline. 3. Follow up chest x-ray or CT chest in few days. 4. Lovenox for DVT prophylaxis. 5. Smoking cessation counseling provided. 6. Prednisone can be tapered off. 7. Continue nebulizer treatment. 8. Discussed with RN. JUJU VALERO MD Jun 17, 2021 09:20
[2021-06-17] MEDS: INSULIN GLARGINE SYRINGE. SQ SCH ×2 (09:40→21:39)
--- NOTE | 2021-06-17 09:40 | RAD ---
Single view chest dated 06/17/2021 9:37 AM: COMPARISON: 06/13/2021 Clinical Indication: Follow-up pneumonia. Findings: Single upright portable exam of the chest was performed. Heart and mediastinal contours are stable. T here is patchy opacity at the perihilar regions and peripheral aspects of both lung bases, unchanged. No pleural effusion. No pneumothorax. Areas of consolidation at the bilateral mid zone appears somew hat more prominent. IMPRESSION: 1. Patchy bilateral airspace disease, similar to slightly increased from prior study. Electronically signed by: Mckay Snider MD (06/17/2021 9:38 AM) [id number]
[2021-06-17 11:00] VITALS: BP 121/75
--- NOTE | 2021-06-17 11:15 | PDOC ---
[employer] PROGRESS NOTE Date of Service DOS: DATE: 06/17/21 TIME: 11:13 Chief Complaint Chief Complaint Assessment/Plan acute hypoxic respiratory failure sepsis Staph epidermidis bacteremia pneumonia - rocephin and doxy COPD with acute exacerbation, steroids and nebs, asthma Tobacco abuse disorder, ongoing Bipolar disorder, controlled on meds obese, BMI 34 ID consulted for further evaluation of her pneumonia, possibly needing bronchoscopy. History of Present Illness History of Present Illness 40-year-old female admit form the ER with acutely worse shortness of breath. Over 4 days w/ increased shortness of breath, cough today. She was at the park today and could not breathe well, had some panic sensation that she could not breathe. Prior hypoxia with illness, no home 02. Hypoxic in field 81%, she walked in to the ER. NOramlly, smokes 2 packs/day but quit 4 days due to not feeling well, her home breathing treatments were not helping. had 2 Covid vaccines 06/14/2021 No acute events overnight. Patient seen examined bedside. Patient requiring 5 L nasal cannula saturating 97%. Not dyspneic upon my encounter. Tolerating breakfast. Blood sugars this morning at 573. Sliding scale and 10 units premeals given. Started on 10 units glargine twice daily. Will start on IV fluids. 06/15/2021 No acute events overnight. Patient seen examined bedside. AF and VSS. Patient not dyspneic at my encounter. Still requiring 5 L nasal cannula oxygen titrated down to 4 L nasal cannula saturating 95%. WBC trending down nicely. Sugars have been better controlled. Patient does take Trulicity and glyburide. Patient endorses that she does smoke 2 packs/day. Smoking counseling offered. Patient's chart, labs, images were reviewed and discussed with RN 06/16/2021 No acute events overnight. Patient seen examined bedside. AF and VSS. Requiring less O2 today and saturating well. Plan for chest x-ray this Saturday. Discussed with pulmonary. 6-minute walk test before discharge. Patient's chart, labs, images were reviewed and discussed with RN 06/17/2021 No acute events overnight. Patient seen examined bedside. AF and VSS. Still needing 2 L nasal cannula to oxygenate at 96%. Not dyspneic upon my encounter. Actually feels a little better. Cough is still present. ID consulted for further evaluation of her pneumonia as her chest x-ray does show worsening infiltrates bilaterally. Patient's chart, labs, images were reviewed and discussed with RN Vitals/I&O Vitals/I&O: Vital Signs Date Time Temp Pulse Resp B/P (MAP) Pulse Ox O2 Delivery O2 Flow Rate FiO2 06/17/21 08:00 Nasal Cannula 2.0 06/17/21 07:25 96 06/17/21 07:00 97.8 80 20 129/91 (104) 97.8 I & O 06/16/21 06/16/21 06/17/21 15:00 23:00 07:00 Intake Total 240 ml 420 ml 120 ml Balance 240 ml 420 ml 120 ml Physical Exam General: Alert, Oriented X3, No acute distress, mild distress Heart: Regular rate Lungs: Clear Abdomen: Normal bowel sounds, Soft, No tenderness Extremities: No clubbing, No edema Skin: No rashes, No significant lesion Labs Labs: Laboratory Tests Test 06/16/21 11:16 06/16/21 16:37 06/16/21 21:05 06/17/21 07:08 Glucose (Fingerstick) 192 mg/dL (70-99) 265 mg/dL (70-99) 292 mg/dL (70-99) 91 mg/dL (70-99) Assessment and Plan Assessmemt and Plan Problems Medical Problems: (1) Atypical pneumonia Status: Acute (2) Hypoxia Status: Acute (3) Shortness of breath Status: Acute Comment Review of Relevant I have reviewed the following items rodney (where applicable) has been applied. Justifications for Admission Other Justification TYLOR DAVISON MD Jun 17, 2021 11:15
[2021-06-17] MEDS: cefTRIAXone IV Push 1 GM VIAL. IVP SCH (14:28)
[2021-06-17 15:00] VITALS: BP 109/63
[2021-06-17] MEDS ORDERED: INSULIN LISPRO 300 UNITS/3 ML VIAL. SQ ONE (17:30)
--- NOTE | 2021-06-17 17:30 | NUR ---
Nurse's note: Patient's blood glucose is 366, Dr. Balderas notified, new insulin order received.
[2021-06-17 19:00] VITALS: BP 120/78
[2021-06-17] MEDS: LINEZOLID 600 MG TABLET PO SCH (21:30)
[2021-06-17] MEDS: ALPRAZolam 0.5 MG TABLET PO PRN (21:40)
[2021-06-17] MEDS: ENOXAPARIN 40 MG/0.4 ML SYRINGE. SQ SCH (21:40)
[2021-06-17 23:03] VITALS: BP 138/78
[2021-06-18 03:06] VITALS: BP 143/98
[2021-06-18] MEDS: guaiFENesin/CODEINE 100mg/10mg 5 ML LIQUID PO PRN ×3 (04:20→21:02)
[2021-06-18] MEDS: IPRATRPIUM/ALBUTEROL 0.5/2.5MG 3 ML NEBU. NEB SCH ×5 (06:00→22:00)
[2021-06-18 07:00] VITALS: BP 121/81
[2021-06-18] MEDS: INSULIN LISPRO 300 UNITS/3 ML VIAL. SQ SCH ×7 (08:00→21:13)
[2021-06-18] MEDS: LACTOBACILLUS RHAMNOSUS GG 1 CAPSULE. PO SCH ×2 (08:16→20:56)
[2021-06-18] MEDS: predniSONE 20 MG TABLET PO SCH (08:16)
[2021-06-18] MEDS: BENZONATATE 100 MG CAPSULE. PO SCH ×3 (08:17→20:57)
[2021-06-18] MEDS: LINEZOLID 600 MG TABLET PO SCH ×2 (08:17→20:57)
[2021-06-18] MEDS: DOXYCYCLINE HYCLATE 100 MG TABLET PO SCH ×2 (08:17→20:56)
--- NOTE | 2021-06-18 09:50 | PDOC ---
PULMONARY PROGRESS NOTES DATE: 06/18/21 TIME: 09:48 Subjective Patient remains on nasal cannula oxygen, patient reports that she feels about the same today, intermittent shortness of breath, and consistent cough that is nonproductive Afebrile, no overnight concerns from nursing Vitals Vital Signs Date Time Temp Pulse Resp B/P (MAP) Pulse Ox O2 Delivery O2 Flow Rate FiO2 06/18/21 07:42 Nasal Cannula 2.0 06/18/21 07:17 95 06/18/21 07:00 97.5 78 20 121/81 (94) 97.5 ROS: No Nausea, No Chest Pain, No Abdominal Pain General: Alert, Oriented X4 Lungs: Clear Cardiovascular: S1 Abdomen: Soft Neuro Exam: Alert, Oriented Extremities: No Edema Skin: Warm, Dry Labs Laboratory Tests Test 06/16/21 11:16 06/16/21 16:37 06/16/21 19:45 06/16/21 21:05 Glucose (Fingerstick) 192 mg/dL (70-99) 265 mg/dL (70-99) 292 mg/dL (70-99) Nasal Screen MRSA (PCR) Negative (NEGATIVE) Test 06/17/21 07:08 06/17/21 11:22 06/17/21 16:24 06/17/21 17:19 Glucose (Fingerstick) 91 mg/dL (70-99) 146 mg/dL (70-99) 404 mg/dL (70-99) 366 mg/dL (70-99) Test 06/17/21 20:33 Glucose (Fingerstick) 216 mg/dL (70-99) Laboratory Tests Test 06/17/21 11:22 06/17/21 16:24 06/17/21 17:19 06/17/21 20:33 Glucose (Fingerstick) 146 mg/dL (70-99) 404 mg/dL (70-99) 366 mg/dL (70-99) 216 mg/dL (70-99) Medications Active Scripts Medications Dose Route/Sig Max Daily Dose Days Date Category Trulicity (Dulaglutide) 1.5 Mg/0.5 Ml Pen.injctr 1.5 Mg SQ WEEKLY 06/13/21 Reported Vraylar (Cariprazine Hydrochloride) 4.5 Mg Capsule 1 Cap PO DAILY 30 06/13/21 Reported Comments Chest x-ray, reviewed, no interval change Impression . 1. Acute hypoxic respiratory failure secondary to extensive bilateral pneumonia. In addition, underlying chronic obstructive pulmonary disease would be another contributing factor.--- 2. Abnormal CT chest with extensive bilateral reticular nodular infiltrates along with bilateral consolidation and reactive adenopathy. She likely has a suspected Gram-negative and Gram-positive pneumonia. She is not immunocompromised. She is updated on COVID vaccine. 3. Underlying obesity. 4. Ongoing tobaccoism, suspect underlying chronic obstructive pulmonary disease. 5. Diabetes type 2 Plan . Continue supplemental oxygen to keep oxygen saturations greater than 92%, current 3 L nasal cannula No change in chest x-ray , consult ID for further recommendations in regards to antibiotic therapy as patient has multiple allergies, would benefit from adding meropenem and discontinuing Rocephin. Patient may benefit from bronchoscopy on Saturday. Have discussed risk and benefits of bronchoscopy. She agrees to proceed with it. We will schedule in the morning 6-minute walk prior to discharge Bronchodilators as needed Antitussive as needed Steroids with slow taper Continue antibiotics currently on Rocephin, doxycycline and Zyvox Physical therapy/Occupational Therapy--out of bed as tolerated DVT/GI prophylaxis Discussed with JUJU DIMAS MD Jun 18, 2021 09:50
--- NOTE | 2021-06-18 10:51 | PDOC ---
[facility] PROGRESS NOTE Date of Service DOS: DATE: 06/18/21 TIME: 10:51 Chief Complaint Chief Complaint Assessment/Plan acute hypoxic respiratory failure sepsis Staph epidermidis bacteremia pneumonia - rocephin and doxy COPD with acute exacerbation, steroids and nebs, asthma Tobacco abuse disorder, ongoing Bipolar disorder, controlled on meds obese, BMI 34 ID consulted for further evaluation of her pneumonia, possibly needing bronchoscopy. History of Present Illness History of Present Illness 40-year-old female admit form the ER with acutely worse shortness of breath. Over 4 days w/ increased shortness of breath, cough today. She was at the park today and could not breathe well, had some panic sensation that she could not breathe. Prior hypoxia with illness, no home 02. Hypoxic in field 81%, she walked in to the ER. NOramlly, smokes 2 packs/day but quit 4 days due to not feeling well, her home breathing treatments were not helping. had 2 Covid vaccines 06/14/2021 No acute events overnight. Patient seen examined bedside. Patient requiring 5 L nasal cannula saturating 97%. Not dyspneic upon my encounter. Tolerating breakfast. Blood sugars this morning at 573. Sliding scale and 10 units premeals given. Started on 10 units glargine twice daily. Will start on IV fluids. 06/15/2021 No acute events overnight. Patient seen examined bedside. AF and VSS. Patient not dyspneic at my encounter. Still requiring 5 L nasal cannula oxygen titrated down to 4 L nasal cannula saturating 95%. WBC trending down nicely. Sugars have been better controlled. Patient does take Trulicity and glyburide. Patient endorses that she does smoke 2 packs/day. Smoking counseling offered. Patient's chart, labs, images were reviewed and discussed with RN 06/16/2021 No acute events overnight. Patient seen examined bedside. AF and VSS. Requiring less O2 today and saturating well. Plan for chest x-ray this Saturday. Discussed with pulmonary. 6-minute walk test before discharge. Patient's chart, labs, images were reviewed and discussed with RN 06/17/2021 No acute events overnight. Patient seen examined bedside. AF and VSS. Still needing 2 L nasal cannula to oxygenate at 96%. Not dyspneic upon my encounter. Actually feels a little better. Cough is still present. ID consulted for further evaluation of her pneumonia as her chest x-ray does show worsening infiltrates bilaterally. Patient's chart, labs, images were reviewed and discussed with RN 06/18/2021 No acute events overnight. Patient seen examined bedside. AF and VSS. Saturating 95% on 2 L nasal cannula. Not more dyspneic than usual. Plan for bronchoscopy tomorrow with pulmonology. Pending ID evaluation for antibiotic management. Patient's chart, labs, images were reviewed and discussed with RN Vitals/I&O Vitals/I&O: Vital Signs Date Time Temp Pulse Resp B/P (MAP) Pulse Ox O2 Delivery O2 Flow Rate FiO2 06/18/21 07:42 Nasal Cannula 2.0 06/18/21 07:17 95 06/18/21 07:00 97.5 78 20 121/81 (94) 97.5 l I & O 06/17/21 06/17/21 06/18/21 15:00 23:00 07:00 Intake Total 480 ml 360 ml Output Total 0 ml Balance 480 ml 360 ml 0 ml Physical Exam General: Alert, Oriented X3, No acute distress, mild distress Heart: Regular rate Lungs: Clear Abdomen: Normal bowel sounds, Soft, No tenderness Extremities: No clubbing, No edema Skin: No rashes, No significant lesion Labs Labs: Laboratory Tests Test 06/17/21 11:22 06/17/21 16:24 06/17/21 17:19 06/17/21 20:33 Glucose (Fingerstick) 146 mg/dL (70-99) 404 mg/dL (70-99) 366 mg/dL (70-99) 216 mg/dL (70-99) Assessment and Plan Assessmemt and Plan Problems Medical Problems: (1) Atypical pneumonia Status: Acute (2) Hypoxia Status: Acute (3) Shortness of breath Status: Acute Comment Review of Relevant I have reviewed the following items rodney (where applicable) has been applied. Medications: Current Medications Medications (Trade) Dose Ordered Sig/Kailyn Route PRN Reason Start Time Stop Time Status Last Admin Dose Admin Linezolid (Zyvox) 600 mg BID PO 06/17/21 21:00 06/18/21 08:17 Insulin Human Lispro (HumaLOG) 19 units 1X ONCE SQ 06/17/21 17:30 06/17/21 17:32 DC 06/17/21 17:51 Justifications for Admission Other Justification TYLOR DAVISON MD Jun 18, 2021 10:51
[2021-06-18 11:00] VITALS: BP 117/65
[2021-06-18] MEDS: INSULIN GLARGINE SYRINGE. SQ SCH ×2 (11:44→21:14)
--- NOTE | 2021-06-18 12:14 | CONS ---
DATE OF CONSULTATION: 06/18/2021 REQUESTING PHYSICIAN: Dr. Chavez. REASON FOR CONSULTATION: Pneumonia. HISTORY OF PRESENT ILLNESS: This is a 40-year-old female with a history of bipolar disorder, COPD, tobaccoism, who is at home oxygen, came in with 6-day history of not feeling well, shortness of breath, cough, though denied fever. Denied any nausea, vomiting, diarrhea. The patient has been seen. X-ray and CT showed bilateral extensive pneumonia. The patient is started on ceftriaxone, doxycycline and Zyvox and a bronchoscopy has been planned for tomorrow. The patient has no other complaints. Denies headache, visual symptoms, urinary symptoms or bowel symptoms. PAST MEDICAL HISTORY: Positive for COPD, bipolar disorder tobaccoism, asthma, depression, home oxygen. SOCIAL HISTORY: Positive for smoking. No alcohol use or drug use. ALLERGIES: LISTED ALLERGIC TO PENICILLIN, AZITHROMYCIN, AND LEVAQUIN, ALL CAUSES HIVES AND VOMITING SHE SAYS. CURRENT MEDICATIONS: Reviewed. REVIEW OF SYSTEMS: As in HPI. All other systems reviewed are negative. PHYSICAL EXAMINATION: GENERAL: Alert, oriented female, not in distress. VITAL SIGNS: Stable, afebrile. HEENT: NAD. NECK: Supple, no JVP, no lymphadenopathy. LUNGS: Clear. HEART: S1, S2, regular. ABDOMEN: Soft, nontender, no organomegaly. EXTREMITIES: No edema or cyanosis. SKIN: Unremarkable. NEUROLOGIC: The patient is alert, awake, and appropriate. No focal neurologic deficit. LABORATORY DATA: White count is 12.6, down from 15,000. BUN and creatinine is 32 and 1.1. MRSA screen negative. COVID negative, influenza negative. Blood culture, she has a Staph epi in 2/4 bottles, likely to be contaminant. CT of the chest reviewed. IMPRESSION: 1. Bilateral extensive pneumonia. 2. Blood culture positive with 2/4 coagulase-negative staph, likely contaminant. 3. Chronic obstructive pulmonary disease. 4. Tobaccoism. 5. Bipolar disorder. 6. Obesity. RECOMMENDATIONS: Agree with Zyvox, Rocephin and doxycycline. Bronchoscopy has been planned for tomorrow. Supportive care. Advised to quit smoking and we will continue to follow. Thank you very much, Dr. Mary, for giving me opportunity to participate in this patient's care. RAMON/AURELIA DR: RAMON/hunter TID: [id number]
[2021-06-18] MEDS ORDERED: MEROPENEM 1 GM in IV NORMAL SALINE 100ML 100 ML IV SCH ×2 (14:00→22:18)
[2021-06-18 15:00] VITALS: BP 116/73
[2021-06-18 19:00] VITALS: BP 102/52
[2021-06-18] MEDS: ENOXAPARIN 40 MG/0.4 ML SYRINGE. SQ SCH (20:57)
[2021-06-18] MEDS: ALPRAZolam 0.5 MG TABLET PO PRN (20:57)
[2021-06-18] MEDS: ZOLPIDEM 5 MG TABLET. PO PRN (20:57)
[2021-06-18] MEDS: MEROPENEM 1 GM in IV NORMAL SALINE 100ML 100 ML IV SCH (22:24)
[2021-06-18 23:01] VITALS: BP 135/70
[2021-06-19 04:29] VITALS: BP 131/86
[2021-06-19] MEDS: MEROPENEM 1 GM in IV NORMAL SALINE 100ML 100 ML IV SCH (06:03)
[2021-06-19 07:00] VITALS: BP 128/79
[2021-06-19] MEDS: IPRATRPIUM/ALBUTEROL 0.5/2.5MG 3 ML NEBU. NEB SCH ×5 (07:11→20:14)
[2021-06-19] MEDS: INSULIN LISPRO 300 UNITS/3 ML VIAL. SQ SCH ×7 (08:00→20:59)
[2021-06-19 08:40] VITALS: BP 132/83
[2021-06-19] MEDS ORDERED: IV RINGERS,LACTATED 1000ML 1,000 ML IV SCH (08:45)
[2021-06-19] MEDS ORDERED: LIDOCAINE 2% VISCOUS 100 ML BOTTLE. ONE (09:00)
[2021-06-19] MEDS ORDERED: LIDOCAINE 4% TOPICAL 50 ML SOLUTION. ONE (09:00)
[2021-06-19] MEDS ORDERED: LIDOCAINE 1% Multi-Dose 20 ML VIAL. ONE (09:00)
[2021-06-19] MEDS ORDERED: EPINEPHrine 1 MG/ML VIAL ONE (09:00)
[2021-06-19] MEDS: INSULIN GLARGINE SYRINGE. SQ SCH ×2 (09:00→20:53)
[2021-06-19] MEDS ORDERED: PROPOFOL 10 MG/ML (20ML) VIAL. IV ONE (09:48)
--- NOTE | 2021-06-19 10:21 | PDOC ---
[facility] PROGRESS NOTE Date of Service DOS: DATE: 06/19/21 TIME: 10:18 Chief Complaint Chief Complaint Respiratory failure Sepsis Staph epidermidis bacteremia Pneumonia COPD Asthma Tobacco abuse Bipolar Obesity History of Present Illness History of Present Illness 06/19/2021 Patient seen and examined in the bronchoscopy suite Discussed with Dr. Rick Discussed with case management Discussed with RN Chart reviewed 40-year-old female admit form the ER with acutely worse shortness of breath. Over 4 days w/ increased shortness of breath, cough today. She was at the park today and could not breathe well, had some panic sensation that she could not breathe. Prior hypoxia with illness, no home 02. Hypoxic in field 81%, she walked in to the ER. NOramlly, smokes 2 packs/day but quit 4 days due to not feeling well, her home breathing treatments were not helping. had 2 Covid vaccines 06/14/2021 No acute events overnight. Patient seen examined bedside. Patient requiring 5 L nasal cannula saturating 97%. Not dyspneic upon my encounter. Tolerating breakfast. Blood sugars this morning at 573. Sliding scale and 10 units premeals given. Started on 10 units glargine twice daily. Will start on IV fluids. 06/15/2021 No acute events overnight. Patient seen examined bedside. AF and VSS. Patient not dyspneic at my encounter. Still requiring 5 L nasal cannula oxygen titrated down to 4 L nasal cannula saturating 95%. WBC trending down nicely. Sugars have been better controlled. Patient does take Trulicity and glyburide. Patient endorses that she does smoke 2 packs/day. Smoking counseling offered. Patient's chart, labs, images were reviewed and discussed with RN 06/16/2021 No acute events overnight. Patient seen examined bedside. AF and VSS. Requiring less O2 today and saturating well. Plan for chest x-ray this Saturday. Discussed with pulmonary. 6-minute walk test before discharge. Patient's chart, labs, images were reviewed and discussed with RN 06/17/2021 No acute events overnight. Patient seen examined bedside. AF and VSS. Still needing 2 L nasal cannula to oxygenate at 96%. Not dyspneic upon my encounter. Actually feels a little better. Cough is still present. ID consulted for further evaluation of her pneumonia as her chest x-ray does show worsening infiltrates bilaterally. Patient's chart, labs, images were reviewed and discussed with RN 06/18/2021 No acute events overnight. Patient seen examined bedside. AF and VSS. Saturating 95% on 2 L nasal cannula. Not more dyspneic than usual. Plan for bronchoscopy tomorrow with pulmonology. Pending ID evaluation for antibiotic management. Patient's chart, labs, images were reviewed and discussed with RN Vitals/I&O Vitals/I&O: Vital Signs Date Time Temp Pulse Resp B/P (MAP) Pulse Ox O2 Delivery O2 Flow Rate FiO2 06/19/21 08:40 Nasal Cannula 2.0 06/19/21 08:40 97.8 68 18 96 97.8 06/19/21 07:00 128/79 (95) I & O 06/18/21 06/18/21 06/19/21 15:00 23:00 07:00 Intake Total 480 ml 340 ml Balance 480 ml 340 ml Physical Exam General: No acute distress Heart: Regular rate Lungs: Crackles Abdomen: Normal bowel sounds, Soft, No tenderness Extremities: No clubbing, No edema Skin: No rashes, No significant lesion Labs Labs: Laboratory Tests Test 06/18/21 11:54 06/18/21 17:05 06/18/21 21:03 06/19/21 07:20 Glucose (Fingerstick) 158 mg/dL (70-99) 273 mg/dL (70-99) 281 mg/dL (70-99) 85 mg/dL (70-99) Assessment and Plan Assessmemt and Plan Problems Medical Problems: (1) Atypical pneumonia Status: Acute (2) Hypoxia Status: Acute (3) Shortness of breath Status: Acute Respiratory failure Sepsis Staph epidermidis bacteremia Pneumonia COPD Asthma Tobacco abuse Bipolar Obesity Plan Await bronchoscopy this morning IV antibiotics Oxygen per nasal cannula Duo nebs Steroids Home meds DVT prophylaxis Await infectious disease and Full code Cardiac monitoring Appreciate subspecialist Comment Review of Relevant I have reviewed the following items rodney (where applicable) has been applied. Medications: Current Medications Medications (Trade) Dose Ordered Sig/Kailyn Route PRN Reason Start Time Stop Time Status Last Admin Dose Admin Meropenem 1 gm/ Sodium Chloride 100 ml @ 200 mls/hr Q8HRS IV 06/18/21 14:00 06/18/21 22:18 DC 06/18/21 13:55 Meropenem 1 gm/ Sodium Chloride 100 ml @ 200 mls/hr Q8HRS IV 06/18/21 22:00 06/19/21 06:03 Ringer's Solution 1,000 ml @ 75 mls/hr [id number] IV 06/19/21 08:45 06/19/21 08:46 Justifications for Admission Other Justification LEW LIZAMA III DO Jun 19, 2021 10:21
--- NOTE | 2021-06-19 10:25 | PDOC ---
PULMONARY PROGRESS NOTES DATE: 06/19/21 TIME: 10:24 Subjective Patient remains on nasal cannula oxygen, patient reports that she feels about the same today, intermittent shortness of breath, and consistent cough that is nonproductive Afebrile, no overnight concerns from nursing Vitals Vital Signs Date Time Temp Pulse Resp B/P (MAP) Pulse Ox O2 Delivery O2 Flow Rate FiO2 06/19/21 08:40 Nasal Cannula 2.0 06/19/21 08:40 97.8 68 18 96 97.8 06/19/21 07:00 128/79 (95) ROS: No Nausea, No Chest Pain, No Abdominal Pain General: Alert, Oriented X4 Lungs: Crackles Cardiovascular: S1 Abdomen: Soft Neuro Exam: Alert, Oriented Extremities: No Edema Skin: Warm, Dry Labs Laboratory Tests Test 06/17/21 11:22 06/17/21 16:24 06/17/21 17:19 06/17/21 20:33 Glucose (Fingerstick) 146 mg/dL (70-99) 404 mg/dL (70-99) 366 mg/dL (70-99) 216 mg/dL (70-99) Test 06/18/21 08:15 06/18/21 11:54 06/18/21 17:05 06/18/21 21:03 Glucose (Fingerstick) 147 mg/dL (70-99) 158 mg/dL (70-99) 273 mg/dL (70-99) 281 mg/dL (70-99) Test 06/19/21 07:20 Glucose (Fingerstick) 85 mg/dL (70-99) Laboratory Tests Test 06/18/21 11:54 06/18/21 17:05 06/18/21 21:03 06/19/21 07:20 Glucose (Fingerstick) 158 mg/dL (70-99) 273 mg/dL (70-99) 281 mg/dL (70-99) 85 mg/dL (70-99) Medications Active Scripts Medications Dose Route/Sig Max Daily Dose Days Date Category Trulicity (Dulaglutide) 1.5 Mg/0.5 Ml Pen.injctr 1.5 Mg SQ WEEKLY 06/13/21 Reported Vraylar (Cariprazine Hydrochloride) 4.5 Mg Capsule 1 Cap PO DAILY 30 06/13/21 Reported Comments Chest x-ray, reviewed, no interval change Impression . 1. Acute hypoxic respiratory failure secondary to extensive bilateral pneumonia. In addition, underlying chronic obstructive pulmonary disease would be another contributing factor.--- 2. Abnormal CT chest with extensive bilateral reticular nodular infiltrates along with bilateral consolidation and reactive adenopathy. She likely has a suspected Gram-negative and Gram-positive pneumonia. She is not immunocompromised. She is updated on COVID vaccine. 3. Underlying obesity. 4. Ongoing tobaccoism, suspect underlying chronic obstructive pulmonary disease. 5. Diabetes type 2 Plan . Continue supplemental oxygen to keep oxygen saturations greater than 92%, current 3 L nasal cannula No change in chest x-ray , consulted ID for further recommendations in regards to antibiotic therapy as patient has multiple allergies, patient switched to meropenem. Rocephin discontinued. She is currently on doxycycline. Proceed with bronchoscopy today. All risk and benefits were explained she agreed to proceed with the procedure. We will follow another chest x-ray in few days. 6-minute walk prior to discharge Bronchodilators as needed Antitussive as needed Steroids with slow taper Continue antibiotics currently on Rocephin, doxycycline and Zyvox Physical therapy/Occupational Therapy--out of bed as tolerated DVT/GI prophylaxis Discussed with JUJU DIMAS MD Jun 19, 2021 10:25
--- NOTE | 2021-06-19 10:34 | OP ---
DATE OF SURGERY: 06/19/2021 PROCEDURE: Bronchoscopy. INDICATIONS: Persistent pneumonia. DESCRIPTION OF PROCEDURE: Informed consent was obtained from the patient, all risks and benefits were explained. She agreed to proceed with the procedure. Propofol was used by anesthesia for sedation. Bronchoscope was initially attempted to the nostril, but they were tight as a result bronch was introduced through the oral route. Vocal cords moves equally with respiration. Trachea was entered. Minimal white secretions seen in the distal trachea and also in the both main stem bronchus. A quick look at the right upper lobe, right middle and right lower lobe was performed. No endobronchial lesion seen. White secretion was seen throughout the upper lobe and middle lobe. A bronchoalveolar lavage from the right middle lobe. A quick look was also performed at the left lung. Left upper lobe, lingula and left lower examined. White secretions were again seen. The patient did drop her saturations during the procedure as a result bronchoscope was quickly withdrawn. She did require bagging with 100% oxygen before saturations came up in the mid 90s. The patient started to wake up as well. IMPRESSION: 1. White secretions seen throughout the both lungs. 2. No endobronchial lesion seen. 3. Bronchoalveolar lavage performed from right middle lobe and sent for appropriate studies. 4. Hypoxia noted during sedation with the bronchoscopy, but it resolved once the patient woke up. The patient did require 100% oxygen initially once the scope was withdrawn. The patient stabilized after that. NOAH DR: Ofelia TID: [id number]
[2021-06-19] MEDS: predniSONE 20 MG TABLET PO SCH (11:13)
[2021-06-19] MEDS: BENZONATATE 100 MG CAPSULE. PO SCH ×3 (11:13→20:43)
[2021-06-19] MEDS: LINEZOLID 600 MG TABLET PO SCH ×2 (11:14→20:47)
[2021-06-19] MEDS: DOXYCYCLINE HYCLATE 100 MG TABLET PO SCH ×2 (11:14→20:43)
[2021-06-19] MEDS: LACTOBACILLUS RHAMNOSUS GG 1 CAPSULE. PO SCH ×2 (11:14→20:43)
[2021-06-19] MEDS: guaiFENesin/CODEINE 100mg/10mg 5 ML LIQUID PO PRN ×2 (11:16→22:15)
--- NOTE | 2021-06-19 12:03 | PDOC ---
Infectious Disease Note Subjective Subjective pt is feeling better ROS ROS no n/v/d/sob Vital Sign Vital Signs Vital Signs Date Time Temp Pulse Resp B/P (MAP) Pulse Ox O2 Delivery O2 Flow Rate FiO2 06/19/21 10:45 88 22 136/58 92 Nasal Cannula 4.0 06/19/21 10:15 97.6 97.6 Physical Exam PHYSICAL EXAM GENERAL: Alert, oriented female, not in distress. VITAL SIGNS: Stable, afebrile. HEENT: NAD. NECK: Supple, no JVP, no lymphadenopathy. LUNGS: Clear. HEART: S1, S2, regular. ABDOMEN: Soft, nontender, no organomegaly. EXTREMITIES: No edema or cyanosis. SKIN: Unremarkable. NEUROLOGIC: The patient is alert, awake, and appropriate. No focal neurologic deficit. Labs Lab Laboratory Tests Test 06/18/21 17:05 06/18/21 21:03 06/19/21 07:20 06/19/21 11:00 Glucose (Fingerstick) 273 mg/dL (70-99) 281 mg/dL (70-99) 85 mg/dL (70-99) 104 mg/dL (70-99) Micro Microbiology 06/13/21 Blood Culture - Final, Complete NO GROWTH AFTER 5 DAYS Objective Assessment IMPRESSION: 1. Bilateral extensive pneumonia. 2. Blood culture positive with 2/4 coagulase-negative staph, likely contaminant. 3. Chronic obstructive pulmonary disease. 4. Tobaccoism. 5. Bipolar disorder. 6. Obesity. Plan Plan of Care cont antibiotics bronch culture pending HROTENCIA BERKOWITZ MD Jun 19, 2021 12:03
--- NOTE | 2021-06-19 14:20 | NUR ---
Can you please send the 1400 dose of meropenem for the patient in 502, thank you!
[2021-06-19 15:00] VITALS: BP 101/53
[2021-06-19] MEDS: DEXTROSE 5% IV SCH ×2 (15:02→20:44)
[2021-06-19] MEDS: MEROPENEM IV SCH ×2 (15:02→20:44)
[2021-06-19 19:00] VITALS: BP 108/52
[2021-06-19] MEDS: ALPRAZolam 0.5 MG TABLET PO PRN (20:43)
[2021-06-19] MEDS: ENOXAPARIN 40 MG/0.4 ML SYRINGE. SQ SCH (20:43)
[2021-06-19] MEDS: ZOLPIDEM 5 MG TABLET. PO PRN (21:40)
[2021-06-19 23:00] VITALS: BP 140/72
[2021-06-20 03:01] VITALS: BP 147/92
[2021-06-20] MEDS: MEROPENEM IV SCH ×3 (06:34→21:56)
[2021-06-20] MEDS: DEXTROSE 5% IV SCH ×3 (06:34→21:56)
[2021-06-20 07:00] VITALS: BP 129/87
[2021-06-20] MEDS: IPRATRPIUM/ALBUTEROL 0.5/2.5MG 3 ML NEBU. NEB SCH ×4 (07:27→20:58)
[2021-06-20] MEDS: INSULIN LISPRO 300 UNITS/3 ML VIAL. SQ SCH ×7 (08:00→21:00)
[2021-06-20] MEDS: LACTOBACILLUS RHAMNOSUS GG 1 CAPSULE. PO SCH ×2 (09:00→21:42)
[2021-06-20] MEDS ORDERED: NON FORMULARY ITEM (Dulaglutide (Trulicity) 1.5 MG) SQ SCH (09:00)
[2021-06-20] MEDS: LINEZOLID 600 MG TABLET PO SCH ×2 (09:00→21:42)
[2021-06-20] MEDS: predniSONE 20 MG TABLET PO SCH (09:01)
[2021-06-20] MEDS: INSULIN GLARGINE SYRINGE. SQ SCH ×2 (09:03→21:50)
[2021-06-20] MEDS: BENZONATATE 100 MG CAPSULE. PO SCH ×3 (09:41→21:42)
[2021-06-20] MEDS: DOXYCYCLINE HYCLATE 100 MG TABLET PO SCH ×2 (09:41→21:42)
--- NOTE | 2021-06-20 10:06 | PDOC ---
[facility] PROGRESS NOTE Date of Service DOS: DATE: 06/20/21 TIME: 10:04 Chief Complaint Chief Complaint Respiratory failure Sepsis Staph epidermidis bacteremia Pneumonia COPD Asthma Tobacco abuse Bipolar Obesity History of Present Illness History of Present Illness 06/20/2021 Patient seen and examined Discussed with RN Chart reviewed Discussed with pulmonary physician She had a bronc yesterday Mostly clear frothy fluid noted on bronchoscopy per pulmonary physician Patient still currently on 2 L of oxygen per nasal cannula 06/19/2021 Patient seen and examined in the bronchoscopy suite Discussed with Dr. Rick Discussed with case management Discussed with RN Chart reviewed 40-year-old female admit form the ER with acutely worse shortness of breath. Over 4 days w/ increased shortness of breath, cough today. She was at the park today and could not breathe well, had some panic sensation that she could not breathe. Prior hypoxia with illness, no home 02. Hypoxic in field 81%, she walked in to the ER. NOramlly, smokes 2 packs/day but quit 4 days due to not feeling well, her home breathing treatments were not helping. had 2 Covid vaccines 06/14/2021 No acute events overnight. Patient seen examined bedside. Patient requiring 5 L nasal cannula saturating 97%. Not dyspneic upon my encounter. Tolerating breakfast. Blood sugars this morning at 573. Sliding scale and 10 units premeals given. Started on 10 units glargine twice daily. Will start on IV fluids. 06/15/2021 No acute events overnight. Patient seen examined bedside. AF and VSS. Patient not dyspneic at my encounter. Still requiring 5 L nasal cannula oxygen titrated down to 4 L nasal cannula saturating 95%. WBC trending down nicely. Sugars have been better controlled. Patient does take Trulicity and glyburide. Patient endorses that she does smoke 2 packs/day. Smoking counseling offered. Patient's chart, labs, images were reviewed and discussed with RN 06/16/2021 No acute events overnight. Patient seen examined bedside. AF and VSS. Requiring less O2 today and saturating well. Plan for chest x-ray this Saturday. Discussed with pulmonary. 6-minute walk test before discharge. Patient's chart, labs, images were reviewed and discussed with RN 06/17/2021 No acute events overnight. Patient seen examined bedside. AF and VSS. Still needing 2 L nasal cannula to oxygenate at 96%. Not dyspneic upon my encounter. Actually feels a little better. Cough is still present. ID consulted for further evaluation of her pneumonia as her chest x-ray does show worsening infiltrates bilaterally. Patient's chart, labs, images were reviewed and discussed with RN 06/18/2021 No acute events overnight. Patient seen examined bedside. AF and VSS. Saturating 95% on 2 L nasal cannula. Not more dyspneic than usual. Plan for bronchoscopy tomorrow with pulmonology. Pending ID evaluation for antibiotic management. Patient's chart, labs, images were reviewed and discussed with RN Vitals/I&O Vitals/I&O: Vital Signs Date Time Temp Pulse Resp B/P (MAP) Pulse Ox O2 Delivery O2 Flow Rate FiO2 06/20/21 08:30 Nasal Cannula 2.0 06/20/21 07:27 98 06/20/21 07:00 98.1 68 18 129/87 (101) 98.1 I & O 06/19/21 06/19/21 06/20/21 15:00 23:00 07:00 Intake Total 440 ml 1040 ml Balance 440 ml 1040 ml Physical Exam Physical Exam: GENERAL: Alert, oriented female, not in distress. VITAL SIGNS: Stable, afebrile. HEENT: NAD. NECK: Supple, no JVP, no lymphadenopathy. LUNGS: Clear. HEART: S1, S2, regular. ABDOMEN: Soft, nontender, no organomegaly. EXTREMITIES: No edema or cyanosis. SKIN: Unremarkable. NEUROLOGIC: The patient is alert, awake, and appropriate. No focal neurologic deficit. General: No acute distress Heart: Regular rate Lungs: Crackles Abdomen: Normal bowel sounds, Soft, No tenderness Extremities: No clubbing, No edema Skin: No rashes, No significant lesion Labs Labs: Laboratory Tests Test 06/19/21 11:00 06/19/21 16:29 06/19/21 18:35 06/20/21 07:17 Glucose (Fingerstick) 104 mg/dL (70-99) 354 mg/dL (70-99) 369 mg/dL (70-99) 96 mg/dL (70-99) Assessment and Plan Assessmemt and Plan Problems Medical Problems: (1) Atypical pneumonia Status: Acute (2) Hypoxia Status: Acute (3) Shortness of breath Status: Acute Respiratory failure Sepsis Staph epidermidis bacteremia Pneumonia COPD Asthma Tobacco abuse Bipolar Obesity Plan IV meropenem and Zyvox Await BAL results Oxygen per nasal cannula Duo nebs Steroids Home meds DVT prophylaxis Await infectious disease and Full code Cardiac monitoring Appreciate subspecialist Comment Review of Relevant I have reviewed the following items rodney (where applicable) has been applied. Medications: Current Medications Medications (Trade) Dose Ordered Sig/Kailyn Route PRN Reason Start Time Stop Time Status Last Admin Dose Admin Meropenem 1 gm/ Dextrose 100 ml @ 200 mls/hr Q8HRS IV 06/19/21 12:40 06/20/21 06:34 Justifications for Admission Other Justification LEW LIZAMA III DO Jun 20, 2021 10:06
--- NOTE | 2021-06-20 10:26 | PDOC ---
PULMONARY PROGRESS NOTES DATE: 06/20/21 TIME: 10:24 Subjective Patient feels better. Cough is improving as well. Vitals Vital Signs Date Time Temp Pulse Resp B/P (MAP) Pulse Ox O2 Delivery O2 Flow Rate FiO2 06/20/21 08:30 Nasal Cannula 2.0 06/20/21 07:27 98 06/20/21 07:00 98.1 68 18 129/87 (101) 98.1 ROS: No Nausea, No Chest Pain, No Abdominal Pain General: Alert, Oriented X4 Lungs: Clear Cardiovascular: S1 Abdomen: Soft Neuro Exam: Alert, Oriented Extremities: No Edema Skin: Warm, Dry Labs Laboratory Tests Test 06/18/21 11:54 06/18/21 17:05 06/18/21 21:03 06/19/21 07:20 Glucose (Fingerstick) 158 mg/dL (70-99) 273 mg/dL (70-99) 281 mg/dL (70-99) 85 mg/dL (70-99) Test 06/19/21 11:00 06/19/21 16:29 06/19/21 18:35 06/20/21 07:17 Glucose (Fingerstick) 104 mg/dL (70-99) 354 mg/dL (70-99) 369 mg/dL (70-99) 96 mg/dL (70-99) Laboratory Tests Test 06/19/21 11:00 06/19/21 16:29 06/19/21 18:35 06/20/21 07:17 Glucose (Fingerstick) 104 mg/dL (70-99) 354 mg/dL (70-99) 369 mg/dL (70-99) 96 mg/dL (70-99) Medications Active Scripts Medications Dose Route/Sig Max Daily Dose Days Date Category Trulicity (Dulaglutide) 1.5 Mg/0.5 Ml Pen.injctr 1.5 Mg SQ WEEKLY 06/13/21 Reported Vraylar (Cariprazine Hydrochloride) 4.5 Mg Capsule 1 Cap PO DAILY 30 06/13/21 Reported Comments Chest x-ray, reviewed, no interval change Impression . 1. Acute hypoxic respiratory failure secondary to extensive bilateral pneumonia. In addition, underlying chronic obstructive pulmonary disease would be another contributing factor.--- 2. Abnormal CT chest with extensive bilateral reticular nodular infiltrates along with bilateral consolidation and reactive adenopathy. She likely has a suspected Gram-negative and Gram-positive pneumonia. She is not immunocompromised. She is updated on COVID vaccine. 3. Underlying obesity. 4. Ongoing tobaccoism, suspect underlying chronic obstructive pulmonary disease. 5. Diabetes type 2 Plan . Continue supplemental oxygen to keep oxygen saturations greater than 92%, current 3 L nasal cannula Clinically responding since initiation of meropenem. Likely may have Pseudomonas. Status post bronchoscopy. Isolation of yeast is likely contamination. Isolation of staph epidermis from the blood is also likely contamination, follow ID recommendations. Await final culture We will follow another chest x-ray in few days. Patient has already home oxygen. Bronchodilators as needed Antitussive as needed Steroids with slow taper Continue antibiotics currently on Rocephin, doxycycline and Zyvox Physical therapy/Occupational Therapy--out of bed as tolerated DVT/GI prophylaxis Discussed with JUJU DIMAS MD Jun 20, 2021 10:26
[2021-06-20 11:00] VITALS: BP 103/57
--- NOTE | 2021-06-20 13:53 | PDOC ---
Infectious Disease Note Subjective Subjective pt is feeling better ROS ROS No nausea vomiting diarrhea or shortness of breath Vital Sign Vital Signs Vital Signs Date Time Temp Pulse Resp B/P (MAP) Pulse Ox O2 Delivery O2 Flow Rate FiO2 06/20/21 12:29 Nasal Cannula 2.0 06/20/21 11:00 97.6 77 18 103/57 (72) 96 97.6 Physical Exam PHYSICAL EXAM GENERAL: Alert, oriented female, not in distress. VITAL SIGNS: Stable, afebrile. HEENT: NAD. NECK: Supple, no JVP, no lymphadenopathy. LUNGS: Clear. HEART: S1, S2, regular. ABDOMEN: Soft, nontender, no organomegaly. EXTREMITIES: No edema or cyanosis. SKIN: Unremarkable. NEUROLOGIC: The patient is alert, awake, and appropriate. No focal neurologic deficit. Labs Lab Laboratory Tests Test 06/19/21 16:29 06/19/21 18:35 06/20/21 07:17 06/20/21 11:22 Glucose (Fingerstick) 354 mg/dL (70-99) 369 mg/dL (70-99) 96 mg/dL (70-99) 192 mg/dL (70-99) Micro Microbiology 06/13/21 Blood Culture - Final, Complete NO GROWTH AFTER 5 DAYS Objective Assessment IMPRESSION: 1. Bilateral extensive pneumonia. 2. Blood culture positive with 2/4 coagulase-negative staph, likely contaminant. 3. Chronic obstructive pulmonary disease. 4. Tobaccoism. 5. Bipolar disorder. 6. Obesity. Plan Plan of Care cont antibiotics bronch culture negative except yeast which is mouth miriam HORTENCIA BERKOWITZ MD Jun 20, 2021 13:53
[2021-06-20 15:00] VITALS: BP 116/74
[2021-06-20 19:00] VITALS: BP 110/57
[2021-06-20] MEDS ORDERED: INSULIN LISPRO 300 UNITS/3 ML VIAL. SQ ONE (21:30)
[2021-06-20] MEDS: ENOXAPARIN 40 MG/0.4 ML SYRINGE. SQ SCH ×2 (21:43→21:45)
[2021-06-20] MEDS: ALPRAZolam 0.5 MG TABLET PO PRN (21:56)
[2021-06-20] MEDS: guaiFENesin/CODEINE 100mg/10mg 5 ML LIQUID PO PRN (21:56)
[2021-06-20] MEDS: ZOLPIDEM 5 MG TABLET. PO PRN (21:56)
[2021-06-20 23:14] VITALS: BP 119/72
[2021-06-21 03:20] VITALS: BP 147/87
[2021-06-21] MEDS: MEROPENEM IV SCH (05:52)
[2021-06-21] MEDS: DEXTROSE 5% IV SCH (05:52)
[2021-06-21 07:00] VITALS: BP 147/78
[2021-06-21] MEDS: IPRATRPIUM/ALBUTEROL 0.5/2.5MG 3 ML NEBU. NEB SCH ×2 (07:39→11:26)
[2021-06-21] MEDS: INSULIN LISPRO 300 UNITS/3 ML VIAL. SQ SCH ×4 (07:58→12:22)
[2021-06-21] MEDS: predniSONE 20 MG TABLET PO SCH (08:14)
[2021-06-21] MEDS: BENZONATATE 100 MG CAPSULE. PO SCH ×2 (08:14→15:07)
[2021-06-21] MEDS: DOXYCYCLINE HYCLATE 100 MG TABLET PO SCH (08:14)
[2021-06-21] MEDS: LACTOBACILLUS RHAMNOSUS GG 1 CAPSULE. PO SCH (08:14)
[2021-06-21] MEDS: LINEZOLID 600 MG TABLET PO SCH (08:14)
[2021-06-21] MEDS: INSULIN GLARGINE SYRINGE. SQ SCH (09:42)
--- NOTE | 2021-06-21 09:54 | PDOC ---
PULMONARY PROGRESS NOTES DATE: 06/21/21 TIME: 09:52 Subjective Patient feels better. Cough is improving as well. Vitals Vital Signs Date Time Temp Pulse Resp B/P (MAP) Pulse Ox O2 Delivery O2 Flow Rate FiO2 06/21/21 08:00 Nasal Cannula 2.0 06/21/21 07:39 96 06/21/21 07:00 97.7 76 18 147/78 (101) 97.7 ROS: No Nausea, No Chest Pain, No Abdominal Pain General: Alert, Oriented X4 Lungs: Clear Cardiovascular: S1 Abdomen: Soft Neuro Exam: Alert, Oriented Extremities: No Edema Skin: Warm, Dry Labs Laboratory Tests Test 06/19/21 11:00 06/19/21 16:29 06/19/21 18:35 06/20/21 07:17 Glucose (Fingerstick) 104 mg/dL (70-99) 354 mg/dL (70-99) 369 mg/dL (70-99) 96 mg/dL (70-99) Test 06/20/21 11:22 06/20/21 16:52 06/20/21 19:18 06/21/21 03:39 Glucose (Fingerstick) 192 mg/dL (70-99) 232 mg/dL (70-99) 359 mg/dL (70-99) 80 mg/dL (70-99) Test 06/21/21 07:49 Glucose (Fingerstick) 83 mg/dL (70-99) Laboratory Tests Test 06/20/21 11:22 06/20/21 16:52 06/20/21 19:18 06/21/21 03:39 Glucose (Fingerstick) 192 mg/dL (70-99) 232 mg/dL (70-99) 359 mg/dL (70-99) 80 mg/dL (70-99) Test 06/21/21 07:49 Glucose (Fingerstick) 83 mg/dL (70-99) Medications Active Scripts Medications Dose Route/Sig Max Daily Dose Days Date Category Trulicity (Dulaglutide) 1.5 Mg/0.5 Ml Pen.injctr 1.5 Mg SQ WEEKLY 06/13/21 Reported Vraylar (Cariprazine Hydrochloride) 4.5 Mg Capsule 1 Cap PO DAILY 30 06/13/21 Reported Comments Chest x-ray reviewed 06/21/2021 Improving bilateral lung infiltrates and consolidation. Impression . 1. Acute hypoxic respiratory failure secondary to extensive bilateral pneumonia. In addition, underlying chronic obstructive pulmonary disease would be another contributing factor.--- 2. Abnormal CT chest with extensive bilateral reticular nodular infiltrates along with bilateral consolidation and reactive adenopathy. She likely has a suspected Gram-negative and Gram-positive pneumonia. She is not immunocompromised. She is updated on COVID vaccine. 3. Underlying obesity. 4. Ongoing tobaccoism, suspect underlying chronic obstructive pulmonary disease. 5. Diabetes type 2 6. Positive blood culture, likely contamination. 7. Isolation of yeast from the bronchoscopy is also contamination Plan . Wean oxygen off. Will need a 6-minute walk test. Clinically responding since initiation of meropenem. Likely may have Pseudomonas. Status post bronchoscopy. Isolation of yeast is likely contamination. Isolation of staph epidermis from the blood is also likely contamination, follow ID recommendations. Await final culture Follow-up chest x-ray today is significantly improved. Okay with discharge on oral antibiotics per ID recommendations. Patient has already home oxygen. Bronchodilators as needed Antitussive as needed Discussed with Dr. Esparza. JUJU VALERO MD Jun 21, 2021 09:54
--- NOTE | 2021-06-21 09:56 | PDOC ---
[facility] PROGRESS NOTE Date of Service DOS: DATE: 06/21/21 TIME: 09:50 Chief Complaint Chief Complaint Respiratory failure Sepsis Staph epidermidis bacteremia Pneumonia COPD Asthma Tobacco abuse Bipolar Obesity History of Present Illness History of Present Illness 06/21 Patient evaluated examined at bedside. Resting in bed doing well respiratory status much better. Notable improvement since Meerem was added on. Possible transition to oral abx if appropriate agent available, will try to discuss with ID. 6min walk ordered. 06/20/2021 Patient seen and examined Discussed with RN Chart reviewed Discussed with pulmonary physician She had a bronc yesterday Mostly clear frothy fluid noted on bronchoscopy per pulmonary physician Patient still currently on 2 L of oxygen per nasal cannula 06/19/2021 Patient seen and examined in the bronchoscopy suite Discussed with Dr. Rick Discussed with case management Discussed with RN Chart reviewed 40-year-old female admit form the ER with acutely worse shortness of breath. O nabor 4 days w/ increased shortness of breath, cough today. She was at the park today and could not breathe well, had some panic sensation that she could not breathe. Prior hypoxia with illness, no home 02. Hypoxic in field 81%, she walked in to the ER. NOramlly, smokes 2 packs/day but quit 4 days due to not feeling well, her home breathing treatments were not helping. had 2 Covid vaccines 06/14/2021 No acute events overnight. Patient seen examined bedside. Patient requiring 5 L nasal cannula saturating 97%. Not dyspneic upon my encounter. Tolerating breakfast. Blood sugars this morning at 573. Sliding scale and 10 units premeals given. Started on 10 units glargine twice daily. Will start on IV fluids. 06/15/2021 No acute events overnight. Patient seen examined bedside. AF and VSS. Patient not dyspneic at my encounter. Still requiring 5 L nasal cannula oxygen titrated down to 4 L nasal cannula saturating 95%. WBC trending down nicely. Sugars have been better controlled. Patient does take Trulicity and glyburide. Patient endorses that she does smoke 2 packs/day. Smoking counseling offered. Patient's chart, labs, images were reviewed and discussed with RN 06/16/2021 No acute events overnight. Patient seen examined bedside. AF and VSS. Requiring less O2 today and saturating well. Plan for chest x-ray this Saturday. Discussed with pulmonary. 6-minute walk test before discharge. Patient's chart, labs, images were reviewed and discussed with RN 06/17/2021 No acute events overnight. Patient seen examined bedside. AF and VSS. Still needing 2 L nasal cannula to oxygenate at 96%. Not dyspneic upon my encounter. Actually feels a little better. Cough is still present. ID consulted for further evaluation of her pneumonia as her chest x-ray does show worsening infiltrates bilaterally. Patient's chart, labs, images were reviewed and discussed with RN 06/18/2021 No acute events overnight. Patient seen examined bedside. AF and VSS. Saturating 95% on 2 L nasal cannula. Not more dyspneic than usual. Plan for bronchoscopy tomorrow with pulmonology. Pending ID evaluation for antibiotic management. Patient's chart, labs, images were reviewed and discussed with RN Vitals/I&O Vitals/I&O: Vital Signs Date Time Temp Pulse Resp B/P (MAP) Pulse Ox O2 Delivery O2 Flow Rate FiO2 06/21/21 08:00 Nasal Cannula 2.0 06/21/21 07:39 96 06/21/21 07:00 97.7 76 18 147/78 (101) 97.7 I & O 06/20/21 06/20/21 06/21/21 15:00 23:00 07:00 Intake Total 360 ml 340 ml 240 ml Balance 360 ml 340 ml 240 ml Physical Exam Physical Exam: GENERAL: Alert, oriented female, not in distress. VITAL SIGNS: Stable, afebrile. HEENT: NAD. NECK: Supple, no JVP, no lymphadenopathy. LUNGS: Clear. HEART: S1, S2, regular. ABDOMEN: Soft, nontender, no organomegaly. EXTREMITIES: No edema or cyanosis. SKIN: Unremarkable. NEUROLOGIC: The patient is alert, awake, and appropriate. No focal neurologic deficit. General: No acute distress Heart: Regular rate Lungs: Clear Abdomen: Normal bowel sounds, Soft, No tenderness Extremities: No clubbing, No edema Skin: No rashes, No significant lesion Labs Labs: Laboratory Tests Test 06/20/21 11:22 06/20/21 16:52 06/20/21 19:18 06/21/21 03:39 Glucose (Fingerstick) 192 mg/dL (70-99) 232 mg/dL (70-99) 359 mg/dL (70-99) 80 mg/dL (70-99) Test 06/21/21 07:49 Glucose (Fingerstick) 83 mg/dL (70-99) Assessment and Plan Assessmemt and Plan Problems Medical Problems: (1) Atypical pneumonia Status: Acute (2) Hypoxia Status: Acute (3) Shortness of breath Status: Acute Comment Review of Relevant I have reviewed the following items rodney (where applicable) has been applied. Medications: Current Medications Medications (Trade) Dose Ordered Sig/Kailyn Route PRN Reason Start Time Stop Time Status Last Admin Dose Admin Insulin Human Lispro (HumaLOG) 15 units 1X ONCE SQ 06/20/21 21:30 06/20/21 21:31 DC 06/20/21 21:49 Justifications for Admission Other Justification RUDI MAYA MD Jun 21, 2021 09:56
[2021-06-21 11:00] VITALS: BP 121/71
--- NOTE | 2021-06-21 11:44 | NUR ---
Dr. Esparza aware that she has oxygen at home.Marie already has oxygen at home.
--- NOTE | 2021-06-21 12:46 | PDOC ---
Infectious Disease Note Subjective Subjective pt is feeling better Vital Sign Vital Signs Vital Signs Date Time Temp Pulse Resp B/P (MAP) Pulse Ox O2 Delivery O2 Flow Rate FiO2 06/21/21 11:26 94 Nasal Cannula 2.0 06/21/21 11:00 97.6 79 18 121/71 (88) 97.6 Physical Exam PHYSICAL EXAM GENERAL: Alert, oriented female, not in distress. VITAL SIGNS: Stable, afebrile. HEENT: NAD. NECK: Supple, no JVP, no lymphadenopathy. LUNGS: Clear. HEART: S1, S2, regular. ABDOMEN: Soft, nontender, no organomegaly. EXTREMITIES: No edema or cyanosis. SKIN: Unremarkable. NEUROLOGIC: The patient is alert, awake, and appropriate. No focal neurologic deficit. Labs Lab Laboratory Tests Test 06/20/21 16:52 06/20/21 19:18 06/21/21 03:39 06/21/21 07:49 Glucose (Fingerstick) 232 mg/dL (70-99) 359 mg/dL (70-99) 80 mg/dL (70-99) 83 mg/dL (70-99) Test 06/21/21 11:28 Glucose (Fingerstick) 127 mg/dL (70-99) Micro Microbiology 06/13/21 Blood Culture - Final, Complete NO GROWTH AFTER 5 DAYS Objective Assessment IMPRESSION: 1. Bilateral extensive pneumonia. 2. Blood culture positive with 2/4 coagulase-negative staph, likely contaminant. 3. Chronic obstructive pulmonary disease. 4. Tobaccoism. 5. Bipolar disorder. 6. Obesity. Plan Plan of Care cont antibiotics bronch culture negative except yeast which is mouth miriam change to po ok to d/c HORTENCIA BERKOWITZ MD Jun 21, 2021 12:45
--- NOTE | 2021-06-21 12:55 | RAD ---
XR CHEST 1V INDICATION: pneumonia . COMPARISON STUDY: 06/17/2021. FINDINGS: Lungs: Normal lung volume. Improving but persistent bilateral opacities. Pleura: Stable pleural spaces. Heart and Mediastinum: Stable cardiomediastinal silhouette and great vessels. Bones and Soft Tissues: Stable regional skeleton and soft tissues. IMPRESSION: Improving but persistent bilateral opacities. Electronically signed by: Ventura Garcia MD (06/21/2021 12:52 PM) [id number]
--- NOTE | 2021-06-21 14:49 | NUR ---
SS following up with discharge planning. SS reviewed pt chart and discussed with pt RN. Pt is currently requiring oxygen at two liters nasal canula. COVID19 negative. Pt has home oxygen. PO medications. Discharge order on the chart for home with self care.
--- NOTE | 2021-06-21 15:30 | NUR ---
dismissed to home with . saline lock removed. reviewed discharge instructions and follow up with physicians. script for antibiotic and oxygen given to her. she is to resume her normal routine for her medications. questions answers.
[2021-06-21] MEDS ORDERED: CEFDINIR 300 MG CAPSULE PO SCH (21:00)
--- NOTE | 2021-06-27 09:24 | PDOC3 ---
[facility]-Discharge Summary Date of Admission: Date of Admission: Jun 13, 2021 Date of Discharge: Date of Discharge: Jun 21, 2021 Discharge Diagnosis: Discharge Diagnosis: pneumonia, copd Hospital Course: Hospital Course: Assessment/Plan A/P: Cellulitis of bilateral thighs and scrotum -consult ID considering recurrent admissions and recent C. difficile. On Tige, Fluconazole PO Vanc Recent C difficile diarrhea - required rectal tube and eventually was sent home on oral vancomycin 4 times daily Sepsis - WBC and tachycardia Right heel decubitus ulcer -clean base. Will have wound care to see Sacrococcygeal excoriation - likely from recent clostridium difficile and essentially bedbound status Recent acinetobacter bacteremia - resolved. Weakness and debility - inability to care for himself fully at home. PT, OT evaluation, SNF referral. PAD - arterial dopplers monophasic likely due to central arterial disease. He does not wish for CT abdomen with runoff on prior hospital stays Bilateral leg pain - PAD and cellulitis as above, elevate extremities Obese - counseled on lifestyle modification Bilateral upper extremity weakness - CT head with remote right parietal changes. 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 No new focal deficits CAD - previously on plavix Chronic diastolic CHF Hypertension - BP low, hold home meds Hyperlipidemia - statin Osteoarthritis - tylenol FEN - Regular diet PPX - lovenox FULL CODE Dispo - inpatient History of Present Illness History of Present Illness 06/21 Evaluated examined at bedside. Agreeable to placements, social work note reviewed. Podiatry consulted today. Can switch to oral antibiotics on discharge. Discussed this with infectious disease team yesterday. Possible discharge in next 24 hours. Patient actually able to be discharged today. Greater than 30 minutes spent on her discharge. 06/20 Patient evaluated examined at bedside. He had just gotten done working with therapy. Was endorsing some right leg pain. Otherwise very talkative told me about his entire family without any prompting. Antimicrobials per infectious disease. Continue therapy modalities. Discussed with bedside RN. Disposition: Disposition/Orders: D/C to Home Activity: Activity: Resume previous activity Diet: Diet: Regular Medications: Home Meds Active Scripts Linezolid (ZYVOX) 600 Mg Tablet, 600 MG PO BID for baceremia for 7 Days, #14 TAB Prov:TYLOR DAVISON MD 06/17/21 Doxycycline Hyclate (DOXYCYCLINE HYCLATE) 100 Mg Tablet, 100 MG PO BID for pneumonia for 5 Days, #10 TAB Prov:TYLOR DAVISON MD 06/17/21 Reported Medications Dulaglutide (Trulicity) 1.5 Mg/0.5 Ml Pen.injctr, 1.5 MG SQ WEEKLY for diabetes, EACH 06/13/21 Cariprazine Hydrochloride (Vraylar) 4.5 Mg Capsule, 1 CAP PO DAILY for biopolar for 30 Days, #30 CAP 0 Refills 06/13/21 Scheduled Cariprazine Hydrochloride (Vraylar), 1 CAP PO DAILY, (Reported) Doxycycline Hyclate (Doxycycline Hyclate), 100 MG PO BID Dulaglutide (Trulicity), 1.5 MG SQ WEEKLY, (Reported) Linezolid (Zyvox), 600 MG PO BID Justicifation of Admission Dx: Justifications for Admission: Justification of Admission Dx: Yes RUDI MAYA MD Jun 27, 2021 09:24
== END 2021-06-21 15:30 | disposition home or self-care (01) | DRG 871 ==
LOC: ER 11:49 → 5 NORTH 15:28
PROVIDERS: ADMIT Internal Medicine; ATTEND Internal Medicine
PROC: 0B9D8ZX Drainage of Right Middle Lung Lobe, Via Natural or Artificial Opening Endoscopic, Diagnostic (ICD-10-PCS; principal; 2021-06-19 09:30)
DX: A41.1 Sepsis due to other specified staphylococcus (principal); J96.01 Acute respiratory failure with hypoxia; J18.9 Pneumonia, unspecified organism; J44.0 Chronic obstructive pulmonary disease with (acute) lower respiratory infection; J44.1 Chronic obstructive pulmonary disease with (acute) exacerbation; E11.9 Type 2 diabetes mellitus without complications; E66.9 Obesity, unspecified; E78.00 Pure hypercholesterolemia, unspecified; Z20.822 Contact with and (suspected) exposure to COVID-19; F17.210 Nicotine dependence, cigarettes, uncomplicated; F31.9 Bipolar disorder, unspecified; F41.9 Anxiety disorder, unspecified; I10 Essential (primary) hypertension; Z68.34 Body mass index [BMI] 34.0-34.9, adult; Z88.1 Allergy status to other antibiotic agents; Z88.5 Allergy status to narcotic agent; Z88.0 Allergy status to penicillin; Z88.8 Allergy status to other drugs, medicaments and biological substances
CPT/HCPCS: 31622; 36415; 36600; 71045; 71275; 80048; 80053; 82805; 82962; 83036; 83735; 83880; 84484; 84702; 85007; 85025; 87040; 87070; 87102; 87106; 87116; 87428; 87641; 93005; 94640; 94760; 96361; 96365; 96366; 96372; 96375; J0696; J1650; J1815; J2020; J2185; J2704; J2930; J3105; J3490; J7030; J7060; J7120; J7512; Q9967; U0003; 99285-25; G0378; J7613